=== PATIENT | female | born 1960 | race Two or more races ===

== ENCOUNTER 2017-06-04 04:08 | Observation (INO) | payer SELFPAY ==
[2017-06-04] MEDS ORDERED: NS 1,000 ML IV ONE (04:16)
[2017-06-04] MEDS ORDERED: ASPIRIN 81 MG CHEWABLE TAB PO ONE (04:16)
[2017-06-04] MEDS ORDERED: NITROGLYCERIN 0.4 MG BTL SL PRN (04:16)
--- NOTE | 2017-06-04 04:20 | EDPHY ---
H & P HPI/ROS: HPI CHIEF COMPLAINT: Chest pain HISTORY OF PRESENT ILLNESS: This patient 56-year-old female, she tells me that in August of last year she had an AR. With 1 stent placed. She states this was done at [facility]. She is homeless. She is living at a local group home. For the past 3 days she has had intermittent chest discomfort in her chest she describes a sharp pain. Does not radiate. She does state that today got worse. Sharp in nature. Associated nausea 1 episode of vomiting. Associated shortness of breath. No pleuritic pain. She states she post be on aspirin. She decided call 911 today as she developed worsening pain in her chest. Past Medical History: Anxiety, thyroid disease, coronary artery disease with a stent. Past Surgical History: No recent surgery Social History: Homeless, denies illicit drugs alcohol tobacco. Family History: Noncontributory. ROS REVIEW OF SYSTEMS: A comprehensive 10 point review of systems is otherwise negative aside from elements mentioned in the history of present illness. Exam Constitutional appears well nontoxic, slightly anxious, triage nursing summary reviewed, vital signs reviewed, awake/alert. Eyes normal conjunctivae and sclera, EOMI, PERRLA. HENT normal inspection, atraumatic, moist mucus membranes, no epistaxis, neck supple/ no meningismus, no raccoon eyes. Respiratory clear to auscultation bilaterally, normal breath sounds, no respiratory distress, no wheezing. Cardiovascular rate normal, regular rhythm, no murmur, no edema, distal pulses normal. Gastrointestinal soft, non-tender, no rebound, no guarding, normal bowel sounds, no distension, no pulsatile mass. Genitourinary no CVA tenderness. Musculoskeletal no midline vertebral tenderness, full range of motion, no calf swelling, no tenderness of extremities, no meningismus, good pulses, neurovascularly intact. Skin pink, warm, & dry, no rash, skin atraumatic. Neurologic awake, alert and oriented x 3, AAOx3, moves all 4 extremities equally, motor intact, sensory intact, CN II-XII intact, normal cerebellar, normal vision, normal speech. Psychiatric normal mood/affect. Heme/Lymph/Immune no lymphadenopathy. Differential diagnosis includes but is not limited to: ACS, atypical chest pain , pneumothorax, pneumonia, pulmonary embolism, aortic dissection, congestive heart failure, tumor, musculoskeletal pain, esophageal pain, GERD, peptic ulcer disease, pancreatitis Medical Decision Making: Plan for this patient IV establishment with IV fluid bolus, full-dose aspirin, nitroglycerin to see if this improves her chest discomfort, chest x-ray, EKG to rule out acute coronary syndrome, and possible admission for chest discomfort. Re-evaluation: Risk factors for chest pain include known coronary artery disease according to the patient. Cardiac stent. Age. EKG interpretation by me on record in [employer] system. Impression time of EKG 0441: This is sinus rhythm rate of 61. T-wave flattening in the lateral leads 1 aVL. Additionally V4 V5 V6. Otherwise I do not appreciate acute ischemia. No old EKG to compare to. ED x-ray chest one view: Negative for acute cardiopulmonary disease. Image interpreted myself. 0516: Spoke with the hospitalist service agrees to admit this patient. Reason for admission chest pain. According to the patient she has risk factors of known coronary artery disease with 1 stent. Her EKG is nonspecific. Troponin negative. D-dimer pending. She is chest pain-free at this time. She received full-dose aspirin prior to arrival and nitroglycerin. Vital signs stable. Source: Patient, EMS Constitutional: Initial Vital Signs Temperature (C) 36.6 C 06/04/17 04:22 Heart Rate 73 06/04/17 04:22 Respiratory Rate 20 06/04/17 04:22 Blood Pressure 107/80 06/04/17 04:22 O2 Sat (%) 96 06/04/17 04:22 O2 Delivery Mode Room Air Allergies/Adverse Reactions: No Known Allergies Allergy (Unverified 06/04/17 04:21) Home Medications: Medication Instructions Recorded Aspirin [Aspirin 81mg (*)] 81 mg PO DAILY 06/04/17 Herbals/Supplements -Info Only 1 ea PO DAILY 06/04/17 buPROPion XL [Wellbutrin Xl] 300 mg PO DAILY 06/04/17 hydrOXYzine HCL [hydrOXYzine HCL 50 - 100 mg PO HS PRN 06/04/17 (RX)] Medical Decision Making - Data Points Laboratory Results: Laboratory Results 06/04/17 04:15 06/04/17 04:15 Medications Given: Acetaminophen (Tylenol) 650 mg PO Q4HRS PRN PRN Reason: Pain, Mild/Fever, Can Take PO Stop: 12/01/17 05:35 Last Admin: 06/04/17 19:52 Dose: 650 mg Bupropion HCl (Wellbutrin Xl) 300 mg PO DAILY [facility] Stop: 12/01/17 08:59 Last Admin: 06/04/17 09:48 Dose: 300 mg Clopidogrel Bisulfate (Plavix) 75 mg PO DAILY [facility] Stop: 12/01/17 17:59 Last Admin: 06/04/17 19:52 Dose: 75 mg Enoxaparin Sodium (Lovenox) 40 mg SC DAILY [facility] Stop: 12/01/17 08:59 Last Admin: 06/04/17 12:45 Dose: Not Given Ondansetron HCl (Zofran) 4 mg IVP Q4HRS PRN PRN Reason: Nausea/Vomiting, Can't Take PO Stop: 12/01/17 05:35 Last Admin: 06/04/17 17:45 Dose: 4 mg Pantoprazole Sodium (Protonix) 40 mg PO DAILY [facility] Stop: 12/01/17 17:59 Last Admin: 06/04/17 19:52 Dose: 40 mg Discontinued Medications Aspirin (Aspirin) 324 mg PO EDNOW ONE Stop: 06/04/17 04:17 Last Admin: 06/04/17 04:40 Dose: Not Given Sodium Chloride (Ns) 1,000 mls @ 0 mls/hr IV EDNOW ONE; Wide Open PRN Reason: Protocol Stop: 06/04/17 04:17 Last Admin: 06/04/17 04:36 Dose: 1,000 mls Departure - Departure Disposition: [place] Inpatient Acute Clinical Impression: Chest pain Qualifiers: Chest pain type: unspecified Qualified Code(s): R07.9 - Chest pain, unspecified Condition: Fair
--- NOTE | 2017-06-04 04:20 | EDPHY ---
H & P HPI/ROS: HPI CHIEF COMPLAINT: Chest pain HISTORY OF PRESENT ILLNESS: This patient 56-year-old female, she tells me that in August of last year she had an KS. With 1 stent placed. She states this was done at [facility]. She is homeless. She is living at a local retirement. For the past 3 days she has had intermittent chest discomfort in her chest she describes a sharp pain. Does not radiate. She does state that today got worse. Sharp in nature. Associated nausea 1 episode of vomiting. Associated shortness of breath. No pleuritic pain. She states she post be on aspirin. She decided call 911 today as she developed worsening pain in her chest. Past Medical History: Anxiety, thyroid disease, coronary artery disease with a stent. Past Surgical History: No recent surgery Social History: Homeless, denies illicit drugs alcohol tobacco. Family History: Noncontributory. ROS REVIEW OF SYSTEMS: A comprehensive 10 point review of systems is otherwise negative aside from elements mentioned in the history of present illness. Exam Constitutional appears well nontoxic, slightly anxious, triage nursing summary reviewed, vital signs reviewed, awake/alert. Eyes normal conjunctivae and sclera, EOMI, PERRLA. HENT normal inspection, atraumatic, moist mucus membranes, no epistaxis, neck supple/ no meningismus, no raccoon eyes. Respiratory clear to auscultation bilaterally, normal breath sounds, no respiratory distress, no wheezing. Cardiovascular rate normal, regular rhythm, no murmur, no edema, distal pulses normal. Gastrointestinal soft, non-tender, no rebound, no guarding, normal bowel sounds, no distension, no pulsatile mass. Genitourinary no CVA tenderness. Musculoskeletal no midline vertebral tenderness, full range of motion, no calf swelling, no tenderness of extremities, no meningismus, good pulses, neurovascularly intact. Skin pink, warm, & dry, no rash, skin atraumatic. Neurologic awake, alert and oriented x 3, AAOx3, moves all 4 extremities equally, motor intact, sensory intact, CN II-XII intact, normal cerebellar, normal vision, normal speech. Psychiatric normal mood/affect. Heme/Lymph/Immune no lymphadenopathy. Differential diagnosis includes but is not limited to: ACS, atypical chest pain , pneumothorax, pneumonia, pulmonary embolism, aortic dissection, congestive heart failure, tumor, musculoskeletal pain, esophageal pain, GERD, peptic ulcer disease, pancreatitis Medical Decision Making: Plan for this patient IV establishment with IV fluid bolus, full-dose aspirin, nitroglycerin to see if this improves her chest discomfort, chest x-ray, EKG to rule out acute coronary syndrome, and possible admission for chest discomfort. Re-evaluation: Risk factors for chest pain include known coronary artery disease according to the patient. Cardiac stent. Age. EKG interpretation by me on record in [facility] system. Impression time of EKG 0441: This is sinus rhythm rate of 61. T-wave flattening in the lateral leads 1 aVL. Additionally V4 V5 V6. Otherwise I do not appreciate acute ischemia. No old EKG to compare to. ED x-ray chest one view: Negative for acute cardiopulmonary disease. Image interpreted myself. 0516: Spoke with the hospitalist service agrees to admit this patient. Reason for admission chest pain. According to the patient she has risk factors of known coronary artery disease with 1 stent. Her EKG is nonspecific. Troponin negative. D-dimer pending. She is chest pain-free at this time. She received full-dose aspirin prior to arrival and nitroglycerin. Vital signs stable. Source: Patient, EMS Constitutional: Initial Vital Signs Temperature (C) 36.6 C 06/04/17 04:22 Heart Rate 73 06/04/17 04:22 Respiratory Rate 20 06/04/17 04:22 Blood Pressure 107/80 06/04/17 04:22 O2 Sat (%) 96 06/04/17 04:22 O2 Delivery Mode Room Air Allergies/Adverse Reactions: No Known Allergies Allergy (Unverified 06/04/17 04:21) Home Medications: Medication Instructions Recorded Aspirin [Aspirin 81mg (*)] 81 mg PO DAILY 06/04/17 Herbals/Supplements -Info Only 1 ea PO DAILY 06/04/17 buPROPion XL [Wellbutrin Xl] 300 mg PO DAILY 06/04/17 hydrOXYzine HCL [hydrOXYzine HCL 50 - 100 mg PO HS PRN 06/04/17 (RX)] Medical Decision Making - Data Points Laboratory Results: Laboratory Results 06/04/17 04:15 06/04/17 04:15 Medications Given: Acetaminophen (Tylenol) 650 mg PO Q4HRS PRN PRN Reason: Pain, Mild/Fever, Can Take PO Stop: 12/01/17 05:35 Last Admin: 06/04/17 19:52 Dose: 650 mg Bupropion HCl (Wellbutrin Xl) 300 mg PO DAILY [facility] Stop: 12/01/17 08:59 Last Admin: 06/04/17 09:48 Dose: 300 mg Clopidogrel Bisulfate (Plavix) 75 mg PO DAILY [facility] Stop: 12/01/17 17:59 Last Admin: 06/04/17 19:52 Dose: 75 mg Enoxaparin Sodium (Lovenox) 40 mg SC DAILY [facility] Stop: 12/01/17 08:59 Last Admin: 06/04/17 12:45 Dose: Not Given Ondansetron HCl (Zofran) 4 mg IVP Q4HRS PRN PRN Reason: Nausea/Vomiting, Can't Take PO Stop: 12/01/17 05:35 Last Admin: 06/04/17 17:45 Dose: 4 mg Pantoprazole Sodium (Protonix) 40 mg PO DAILY [facility] Stop: 12/01/17 17:59 Last Admin: 06/04/17 19:52 Dose: 40 mg Discontinued Medications Aspirin (Aspirin) 324 mg PO EDNOW ONE Stop: 06/04/17 04:17 Last Admin: 06/04/17 04:40 Dose: Not Given Sodium Chloride (Ns) 1,000 mls @ 0 mls/hr IV EDNOW ONE; Wide Open PRN Reason: Protocol Stop: 06/04/17 04:17 Last Admin: 06/04/17 04:36 Dose: 1,000 mls Departure - Departure Disposition: [place] Inpatient Acute Clinical Impression: Chest pain Qualifiers: Chest pain type: unspecified Qualified Code(s): R07.9 - Chest pain, unspecified Condition: Fair
--- NOTE | 2017-06-04 04:20 | EDPHY ---
H & P HPI/ROS: HPI CHIEF COMPLAINT: Chest pain HISTORY OF PRESENT ILLNESS: This patient 56-year-old female, she tells me that in August of last year she had an CT. With 1 stent placed. She states this was done at [facility]. She is homeless. She is living at a local snf. For the past 3 days she has had intermittent chest discomfort in her chest she describes a sharp pain. Does not radiate. She does state that today got worse. Sharp in nature. Associated nausea 1 episode of vomiting. Associated shortness of breath. No pleuritic pain. She states she post be on aspirin. She decided call 911 today as she developed worsening pain in her chest. Past Medical History: Anxiety, thyroid disease, coronary artery disease with a stent. Past Surgical History: No recent surgery Social History: Homeless, denies illicit drugs alcohol tobacco. Family History: Noncontributory. ROS REVIEW OF SYSTEMS: A comprehensive 10 point review of systems is otherwise negative aside from elements mentioned in the history of present illness. Exam Constitutional appears well nontoxic, slightly anxious, triage nursing summary reviewed, vital signs reviewed, awake/alert. Eyes normal conjunctivae and sclera, EOMI, PERRLA. HENT normal inspection, atraumatic, moist mucus membranes, no epistaxis, neck supple/ no meningismus, no raccoon eyes. Respiratory clear to auscultation bilaterally, normal breath sounds, no respiratory distress, no wheezing. Cardiovascular rate normal, regular rhythm, no murmur, no edema, distal pulses normal. Gastrointestinal soft, non-tender, no rebound, no guarding, normal bowel sounds, no distension, no pulsatile mass. Genitourinary no CVA tenderness. Musculoskeletal no midline vertebral tenderness, full range of motion, no calf swelling, no tenderness of extremities, no meningismus, good pulses, neurovascularly intact. Skin pink, warm, & dry, no rash, skin atraumatic. Neurologic awake, alert and oriented x 3, AAOx3, moves all 4 extremities equally, motor intact, sensory intact, CN II-XII intact, normal cerebellar, normal vision, normal speech. Psychiatric normal mood/affect. Heme/Lymph/Immune no lymphadenopathy. Differential diagnosis includes but is not limited to: ACS, atypical chest pain , pneumothorax, pneumonia, pulmonary embolism, aortic dissection, congestive heart failure, tumor, musculoskeletal pain, esophageal pain, GERD, peptic ulcer disease, pancreatitis Medical Decision Making: Plan for this patient IV establishment with IV fluid bolus, full-dose aspirin, nitroglycerin to see if this improves her chest discomfort, chest x-ray, EKG to rule out acute coronary syndrome, and possible admission for chest discomfort. Re-evaluation: Risk factors for chest pain include known coronary artery disease according to the patient. Cardiac stent. Age. EKG interpretation by me on record in [employer] system. Impression time of EKG 0441: This is sinus rhythm rate of 61. T-wave flattening in the lateral leads 1 aVL. Additionally V4 V5 V6. Otherwise I do not appreciate acute ischemia. No old EKG to compare to. ED x-ray chest one view: Negative for acute cardiopulmonary disease. Image interpreted myself. 0516: Spoke with the hospitalist service agrees to admit this patient. Reason for admission chest pain. According to the patient she has risk factors of known coronary artery disease with 1 stent. Her EKG is nonspecific. Troponin negative. D-dimer pending. She is chest pain-free at this time. She received full-dose aspirin prior to arrival and nitroglycerin. Vital signs stable. Source: Patient, EMS Constitutional: Initial Vital Signs Temperature (C) 36.6 C 06/04/17 04:22 Heart Rate 73 06/04/17 04:22 Respiratory Rate 20 06/04/17 04:22 Blood Pressure 107/80 06/04/17 04:22 O2 Sat (%) 96 06/04/17 04:22 O2 Delivery Mode Room Air Allergies/Adverse Reactions: No Known Allergies Allergy (Unverified 06/04/17 04:21) Home Medications: Medication Instructions Recorded Aspirin [Aspirin 81mg (*)] 81 mg PO DAILY 06/04/17 Herbals/Supplements -Info Only 1 ea PO DAILY 06/04/17 buPROPion XL [Wellbutrin Xl] 300 mg PO DAILY 06/04/17 hydrOXYzine HCL [hydrOXYzine HCL 50 - 100 mg PO HS PRN 06/04/17 (RX)] Medical Decision Making - Data Points Laboratory Results: Laboratory Results 06/04/17 04:15 06/04/17 04:15 Medications Given: Acetaminophen (Tylenol) 650 mg PO Q4HRS PRN PRN Reason: Pain, Mild/Fever, Can Take PO Stop: 12/01/17 05:35 Last Admin: 06/04/17 19:52 Dose: 650 mg Bupropion HCl (Wellbutrin Xl) 300 mg PO DAILY [facility] Stop: 12/01/17 08:59 Last Admin: 06/04/17 09:48 Dose: 300 mg Clopidogrel Bisulfate (Plavix) 75 mg PO DAILY [facility] Stop: 12/01/17 17:59 Last Admin: 06/04/17 19:52 Dose: 75 mg Enoxaparin Sodium (Lovenox) 40 mg SC DAILY [facility] Stop: 12/01/17 08:59 Last Admin: 06/04/17 12:45 Dose: Not Given Ondansetron HCl (Zofran) 4 mg IVP Q4HRS PRN PRN Reason: Nausea/Vomiting, Can't Take PO Stop: 12/01/17 05:35 Last Admin: 06/04/17 17:45 Dose: 4 mg Pantoprazole Sodium (Protonix) 40 mg PO DAILY [facility] Stop: 12/01/17 17:59 Last Admin: 06/04/17 19:52 Dose: 40 mg Discontinued Medications Aspirin (Aspirin) 324 mg PO EDNOW ONE Stop: 06/04/17 04:17 Last Admin: 06/04/17 04:40 Dose: Not Given Sodium Chloride (Ns) 1,000 mls @ 0 mls/hr IV EDNOW ONE; Wide Open PRN Reason: Protocol Stop: 06/04/17 04:17 Last Admin: 06/04/17 04:36 Dose: 1,000 mls Departure - Departure Disposition: [place] Inpatient Acute Clinical Impression: Chest pain Qualifiers: Chest pain type: unspecified Qualified Code(s): R07.9 - Chest pain, unspecified Condition: Fair
[2017-06-04 04:27] LABS: PLATELET COUNT 312 10^3/uL (150-400)
[2017-06-04 04:40] LABS: CREATINE KINASE 243 IU/L (0-156)
--- NOTE | 2017-06-04 04:48 | CPEKG ---
Heart Rate: 61 RR Interval: 984 P-R Interval: 172 QRSD Interval: 104 QT Interval: 436 QTC Interval: 440 P Gloster: 74 QRS [place]oster: 73 T Wave [place]oster: 76 EKG Severity - BORDERLINE ECG - EKG Impression: SINUS RHYTHM EKG Impression: BORDERLINE T ABNORMALITIES, ANT-LAT LEADS Electronically Signed By: Terry Dominguez 04-Jun-2017 07:06:34
[2017-06-04 05:05] LABS: INR 0.98 (0.83-1.16); PROTIME(PATIENT) 12.9 SEC (12.0-15.0)
[2017-06-04] MEDS ORDERED: LORazepam 0.5 MG TAB PO PRN (05:36)
[2017-06-04] MEDS ORDERED: HYDROCODONE/APAP 5/325 TAB PO PRN (05:36)
[2017-06-04] MEDS ORDERED: hydrOXYzine HCL 25 MG TAB PO PRN (08:45)
[2017-06-04] MEDS ORDERED: Herbals/Supplements -Info Only PO SCH (09:00)
[2017-06-04] MEDS: buPROPion XL 150 MG TAB PO SCH (09:48)
--- NOTE | 2017-06-04 10:39 | PDGENHP ---
History and Physical - Chief Complaint Acute Chest Pain - History of Present Illness PCP: [facility] HPI: 56 yo F p/w acute chest pain characterized as sharp, located in the sub- sternal area, onset 3 days ago, duration intermittent thereafter. It has been fairly constant since the evening prior to this presentation, and it was alleviated w/ ASA/SLNitro in the ED. She denies any recent trauma to the area, and reports that her ROM bilat shoulders has been intact. She reports some associated recent stress, with one episode of nausea/vomiting/shortness of breath, and she is unsure if this is all stress-mediated. She has been taking ASA 325 for the past year, and recently adjusted to ASA 81 at her PCP's guidance. She accidentally stopped taking Plavix several months ago, and was told to take for entire year. History Information - Allergies/Home Medication List Allergies/Adverse Reactions: No Known Allergies Allergy (Unverified 06/04/17 04:21) Home Medications: Aspirin [Aspirin 81mg (*)] 81 mg PO DAILY 06/04/17 [Last Taken 06/03/17] Herbals/Supplements -Info Only 1 ea PO DAILY 06/04/17 [Last Taken Unknown] buPROPion XL [Wellbutrin Xl] 300 mg PO DAILY 06/04/17 [Last Taken 06/03/17] hydrOXYzine HCL [hydrOXYzine HCL (RX)] 50 - 100 mg PO HS PRN 06/04/17 [Last Taken Unknown] I have personally reviewed and updated: family history, medical history, social history, surgical history - Past Medical History coronary artery disease (w/ stent placed 08/20 at [facility]) Additional medical history: Anxiety/Depression. Hypothyroidism - Surgical History Additional surgical history: Cardiac Stent - Family History Additional family history: no CAD/VTE - Social History Smoking Status: Never smoked Alcohol Use: None Drug Use: None Additional social history: Homeless, originally from [place], has been living in [facility] for past year Review of Systems Review of Systems: ROS: 10pt was reviewed & negative except for what was stated in HPI & below Cardiac: Reports: chest pain Respiratory: Reports: shortness of breath Gastrointestinal: Reports: vomitting, nausea Physical Exam Physical Exam: Temp Pulse Resp BP Pulse Ox 37.1 C 60 11 L 91/66 L 96 06/04/17 09:32 06/04/17 09:32 06/04/17 09:32 06/04/17 09:32 06/04/17 09:32 Constitutional: no apparent distress, appears nourished, not in pain Eyes: PERRL, anicteric sclera, EOMI Ears, Nose, Mouth, Throat: moist mucous membranes, hearing normal, ears appear normal, no oral mucosal ulcers Cardiovascular: regular rate and rhythym, no murmur, rub, or gallop, No edema Respiratory: no respiratory distress, no rales or rhonchi, clear to auscultation Gastrointestinal: normoactive bowel sounds, soft, non-tender abdomen, no palpable masses Skin: warm, normal color, no rashes or abrasions, no fluctuance, no induration, No mottled Musculoskeletal: other (full ROM L shoulder, no tenderness over clavicle or sternum) Neurologic: AAOx3, sensation intact bilaterally, No weakness Psychiatric: interacting appropriately, not anxious, not encephalopathic, thought process linear Lab Data & Imaging Review 06/04/17 04:15 06/04/17 04:15 WBC 8.16 10^3/uL (3.80-9.50) 06/04/17 04:15 RBC 4.82 10^6/uL (4.18-5.33) 06/04/17 04:15 Hgb 13.7 g/dL (12.6-16.3) 06/04/17 04:15 Hct 40.8 % (38.0-47.0) 06/04/17 04:15 MCV 84.6 fL (81.5-99.8) 06/04/17 04:15 MCH 28.4 pg (27.9-34.1) 06/04/17 04:15 MCHC 33.6 g/dL (32.4-36.7) 06/04/17 04:15 RDW 13.6 % (11.5-15.2) 06/04/17 04:15 Plt Count 312 10^3/uL (150-400) 06/04/17 04:15 MPV 10.0 fL (8.7-11.7) 06/04/17 04:15 Neut % (Auto) 69.2 % (39.3-74.2) 06/04/17 04:15 Lymph % (Auto) 24.0 % (15.0-45.0) 06/04/17 04:15 [place] % (Auto) 5.1 % (4.5-13.0) 06/04/17 04:15 Eos % (Auto) 0.9 % (0.6-7.6) 06/04/17 04:15 Baso % (Auto) 0.6 % (0.3-1.7) 06/04/17 04:15 Nucleat RBC Rel Count 0.0 % (0.0-0.2) 06/04/17 04:15 Absolute Neuts (auto) 5.64 10^3/uL (1.70-6.50) 06/04/17 04:15 Absolute Lymphs (auto) 1.96 10^3/uL (1.00-3.00) 06/04/17 04:15 Absolute Monos (auto) 0.42 10^3/uL (0.30-0.80) 06/04/17 04:15 Absolute Eos (auto) 0.07 10^3/uL (0.03-0.40) 06/04/17 04:15 Absolute Basos (auto) 0.05 10^3/uL (0.02-0.10) 06/04/17 04:15 Absolute Nucleated RBC 0.00 10^3/uL (0-0.01) 06/04/17 04:15 Immature Gran % 0.2 % (0.0-1.1) 06/04/17 04:15 Immature Gran # 0.02 10^3/uL (0.00-0.10) 06/04/17 04:15 PT 12.9 SEC (12.0-15.0) 06/04/17 04:35 INR 0.98 (0.83-1.16) 06/04/17 04:35 APTT 28.9 SEC (23.0-38.0) 06/04/17 04:35 D-Dimer < 0.27 ug/mLFEU (0.00-0.50) 06/04/17 04:35 Sodium 140 mEq/L (134-144) 06/04/17 04:15 Potassium 4.4 mEq/L (3.5-5.2) 06/04/17 04:15 Chloride 104 mEq/L (97-110) 06/04/17 04:15 Carbon Dioxide 20 mEq/l (22-31) L 06/04/17 04:15 Anion Gap 16 mEq/L (8-16) 06/04/17 04:15 BUN 14 mg/dL (7-23) 06/04/17 04:15 Creatinine 1.2 mg/dL (0.6-1.0) H 06/04/17 04:15 Estimated GFR 46 06/04/17 04:15 Glucose 109 mg/dL (70-100) H 06/04/17 04:15 Calcium 10.2 mg/dL (8.5-10.4) 06/04/17 04:15 Magnesium 2.1 mg/dL (1.6-2.3) 06/04/17 04:15 Total Bilirubin 0.7 mg/dL (0.1-1.4) 06/04/17 04:15 Conjugated Bilirubin 0.2 mg/dL (0.0-0.5) 06/04/17 04:15 Unconjugated Bilirubin 0.5 mg/dL (0.0-1.1) 06/04/17 04:15 AST 28 IU/L (14-46) 06/04/17 04:15 ALT 39 IU/L (9-52) 06/04/17 04:15 Alkaline Phosphatase 84 IU/L (38-126) 06/04/17 04:15 Creatine Kinase 243 IU/L (0-156) H 06/04/17 04:15 CK-MB (CK-2) Fraction 5.52 ng/mL (0.00-3.19) H 06/04/17 04:15 CK-MB (CK-2) % 2.3 % (0.0-4.0) 06/04/17 04:15 Creatine Kinase Interp NEGATIVE (NEGATIVE) 06/04/17 04:15 Troponin I < 0.012 ng/mL (0.000-0.034) 06/04/17 09:00 NT-Pro-B Natriuret Pep 43 pg/mL (0-125) 06/04/17 04:15 Total Protein 8.7 g/dL (6.3-8.2) H 06/04/17 04:15 Albumin 5.4 g/dL (3.5-5.0) H 06/04/17 04:15 Lipase 106 IU/L (23-300) 06/04/17 04:15 Visualized and Interpreted Chest x-ray results: Yes Chest X-Ray results: no infiltrate, other (possible L clavicle fxr) Visualized and Interpreted EKG results: Yes EKG Interpretation: Positive for: other (NSR< flat T wave V2-V3) Assessment & Plan Assessment: 56 yo F p/w acute chest pain in setting of known CAD Plan: # Chest pain. Acute, new problem, further w/u indicated. Given hx of CAD and prior stent, not on ideal oeet-xbuc-typiydup therapy, she is at risk of instent thrombosis and ACS - recheck trop now - if negative, then will get EKG treadmill stress this AM, keep NPO in case cath needed - if stress positive, will order outside recs from [facility] and get cards consult for cath - dimer negative - if all above negative, risk of ACS very low, and will discharge w/ suspected stress-induced physical symptoms, recommend outpt PCP/therapy reassessments # CAD. Chronic, patient not on dual anti-platelet therapy, recommended that she restart plavix and continue ASA - patient reports she has access to prescriptions through [employer] . 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 NPO, reg if stress neg PPx. Low risk, SCDs Code. Full Dispo. ADD 06/04 pending results of stress test. D/w [facility]el [facility], [facility], she has assigned patient to me for evaluation.
--- NOTE | 2017-06-04 10:39 | PDGENHP ---
History and Physical - Chief Complaint Acute Chest Pain - History of Present Illness PCP: [facility] HPI: 56 yo F p/w acute chest pain characterized as sharp, located in the sub- sternal area, onset 3 days ago, duration intermittent thereafter. It has been fairly constant since the evening prior to this presentation, and it was alleviated w/ ASA/SLNitro in the ED. She denies any recent trauma to the area, and reports that her ROM bilat shoulders has been intact. She reports some associated recent stress, with one episode of nausea/vomiting/shortness of breath, and she is unsure if this is all stress-mediated. She has been taking ASA 325 for the past year, and recently adjusted to ASA 81 at her PCP's guidance. She accidentally stopped taking Plavix several months ago, and was told to take for entire year. History Information - Allergies/Home Medication List Allergies/Adverse Reactions: No Known Allergies Allergy (Unverified 06/04/17 04:21) Home Medications: Aspirin [Aspirin 81mg (*)] 81 mg PO DAILY 06/04/17 [Last Taken 06/03/17] Herbals/Supplements -Info Only 1 ea PO DAILY 06/04/17 [Last Taken Unknown] buPROPion XL [Wellbutrin Xl] 300 mg PO DAILY 06/04/17 [Last Taken 06/03/17] hydrOXYzine HCL [hydrOXYzine HCL (RX)] 50 - 100 mg PO HS PRN 06/04/17 [Last Taken Unknown] I have personally reviewed and updated: family history, medical history, social history, surgical history - Past Medical History coronary artery disease (w/ stent placed 08/20 at [facility]) Additional medical history: Anxiety/Depression. Hypothyroidism - Surgical History Additional surgical history: Cardiac Stent - Family History Additional family history: no CAD/VTE - Social History Smoking Status: Never smoked Alcohol Use: None Drug Use: None Additional social history: Homeless, originally from [place], has been living in [facility] for past year Review of Systems Review of Systems: ROS: 10pt was reviewed & negative except for what was stated in HPI & below Cardiac: Reports: chest pain Respiratory: Reports: shortness of breath Gastrointestinal: Reports: vomitting, nausea Physical Exam Physical Exam: Temp Pulse Resp BP Pulse Ox 37.1 C 60 11 L 91/66 L 96 06/04/17 09:32 06/04/17 09:32 06/04/17 09:32 06/04/17 09:32 06/04/17 09:32 Constitutional: no apparent distress, appears nourished, not in pain Eyes: PERRL, anicteric sclera, EOMI Ears, Nose, Mouth, Throat: moist mucous membranes, hearing normal, ears appear normal, no oral mucosal ulcers Cardiovascular: regular rate and rhythym, no murmur, rub, or gallop, No edema Respiratory: no respiratory distress, no rales or rhonchi, clear to auscultation Gastrointestinal: normoactive bowel sounds, soft, non-tender abdomen, no palpable masses Skin: warm, normal color, no rashes or abrasions, no fluctuance, no induration, No mottled Musculoskeletal: other (full ROM L shoulder, no tenderness over clavicle or sternum) Neurologic: AAOx3, sensation intact bilaterally, No weakness Psychiatric: interacting appropriately, not anxious, not encephalopathic, thought process linear Lab Data & Imaging Review 06/04/17 04:15 06/04/17 04:15 WBC 8.16 10^3/uL (3.80-9.50) 06/04/17 04:15 RBC 4.82 10^6/uL (4.18-5.33) 06/04/17 04:15 Hgb 13.7 g/dL (12.6-16.3) 06/04/17 04:15 Hct 40.8 % (38.0-47.0) 06/04/17 04:15 MCV 84.6 fL (81.5-99.8) 06/04/17 04:15 MCH 28.4 pg (27.9-34.1) 06/04/17 04:15 MCHC 33.6 g/dL (32.4-36.7) 06/04/17 04:15 RDW 13.6 % (11.5-15.2) 06/04/17 04:15 Plt Count 312 10^3/uL (150-400) 06/04/17 04:15 MPV 10.0 fL (8.7-11.7) 06/04/17 04:15 Neut % (Auto) 69.2 % (39.3-74.2) 06/04/17 04:15 Lymph % (Auto) 24.0 % (15.0-45.0) 06/04/17 04:15 [place] % (Auto) 5.1 % (4.5-13.0) 06/04/17 04:15 Eos % (Auto) 0.9 % (0.6-7.6) 06/04/17 04:15 Baso % (Auto) 0.6 % (0.3-1.7) 06/04/17 04:15 Nucleat RBC Rel Count 0.0 % (0.0-0.2) 06/04/17 04:15 Absolute Neuts (auto) 5.64 10^3/uL (1.70-6.50) 06/04/17 04:15 Absolute Lymphs (auto) 1.96 10^3/uL (1.00-3.00) 06/04/17 04:15 Absolute Monos (auto) 0.42 10^3/uL (0.30-0.80) 06/04/17 04:15 Absolute Eos (auto) 0.07 10^3/uL (0.03-0.40) 06/04/17 04:15 Absolute Basos (auto) 0.05 10^3/uL (0.02-0.10) 06/04/17 04:15 Absolute Nucleated RBC 0.00 10^3/uL (0-0.01) 06/04/17 04:15 Immature Gran % 0.2 % (0.0-1.1) 06/04/17 04:15 Immature Gran # 0.02 10^3/uL (0.00-0.10) 06/04/17 04:15 PT 12.9 SEC (12.0-15.0) 06/04/17 04:35 INR 0.98 (0.83-1.16) 06/04/17 04:35 APTT 28.9 SEC (23.0-38.0) 06/04/17 04:35 D-Dimer < 0.27 ug/mLFEU (0.00-0.50) 06/04/17 04:35 Sodium 140 mEq/L (134-144) 06/04/17 04:15 Potassium 4.4 mEq/L (3.5-5.2) 06/04/17 04:15 Chloride 104 mEq/L (97-110) 06/04/17 04:15 Carbon Dioxide 20 mEq/l (22-31) L 06/04/17 04:15 Anion Gap 16 mEq/L (8-16) 06/04/17 04:15 BUN 14 mg/dL (7-23) 06/04/17 04:15 Creatinine 1.2 mg/dL (0.6-1.0) H 06/04/17 04:15 Estimated GFR 46 06/04/17 04:15 Glucose 109 mg/dL (70-100) H 06/04/17 04:15 Calcium 10.2 mg/dL (8.5-10.4) 06/04/17 04:15 Magnesium 2.1 mg/dL (1.6-2.3) 06/04/17 04:15 Total Bilirubin 0.7 mg/dL (0.1-1.4) 06/04/17 04:15 Conjugated Bilirubin 0.2 mg/dL (0.0-0.5) 06/04/17 04:15 Unconjugated Bilirubin 0.5 mg/dL (0.0-1.1) 06/04/17 04:15 AST 28 IU/L (14-46) 06/04/17 04:15 ALT 39 IU/L (9-52) 06/04/17 04:15 Alkaline Phosphatase 84 IU/L (38-126) 06/04/17 04:15 Creatine Kinase 243 IU/L (0-156) H 06/04/17 04:15 CK-MB (CK-2) Fraction 5.52 ng/mL (0.00-3.19) H 06/04/17 04:15 CK-MB (CK-2) % 2.3 % (0.0-4.0) 06/04/17 04:15 Creatine Kinase Interp NEGATIVE (NEGATIVE) 06/04/17 04:15 Troponin I < 0.012 ng/mL (0.000-0.034) 06/04/17 09:00 NT-Pro-B Natriuret Pep 43 pg/mL (0-125) 06/04/17 04:15 Total Protein 8.7 g/dL (6.3-8.2) H 06/04/17 04:15 Albumin 5.4 g/dL (3.5-5.0) H 06/04/17 04:15 Lipase 106 IU/L (23-300) 06/04/17 04:15 Visualized and Interpreted Chest x-ray results: Yes Chest X-Ray results: no infiltrate, other (possible L clavicle fxr) Visualized and Interpreted EKG results: Yes EKG Interpretation: Positive for: other (NSR< flat T wave V2-V3) Assessment & Plan Assessment: 56 yo F p/w acute chest pain in setting of known CAD Plan: # Chest pain. Acute, new problem, further w/u indicated. Given hx of CAD and prior stent, not on ideal cszh-gmml-kngisdmd therapy, she is at risk of instent thrombosis and ACS - recheck trop now - if negative, then will get EKG treadmill stress this AM, keep NPO in case cath needed - if stress positive, will order outside recs from [facility] and get cards consult for cath - dimer negative - if all above negative, risk of ACS very low, and will discharge w/ suspected stress-induced physical symptoms, recommend outpt PCP/therapy reassessments # CAD. Chronic, patient not on dual anti-platelet therapy, recommended that she restart plavix and continue ASA - patient reports she has access to prescriptions through [employer] . 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 NPO, reg if stress neg PPx. Low risk, SCDs Code. Full Dispo. ADD 06/04 pending results of stress test. [facility], she has assigned patient to me for evaluation.
[2017-06-04] MEDS: ENOXAPARIN 40 MG/0.4 ML SYR SC SCH (12:45)
--- NOTE | 2017-06-04 13:14 | CPR ---
[f rep st] NONINVASIVE CARDIAC PROCEDURE REPORT STUDY PERFORMED: Exercise treadmill testing. INDICATION FOR STRESS TESTING: Chest pressure, history of coronary artery disease with previous sten ting. PRE-: After obtaining informed consent, patient was placed on electrocardiogram. Initial EKG shows sinus rhythm, normal axis, with flattened to inverse T-waves in inferior lateral leads. The patient reporting 4/10 chest pressure, which has been consistent for the last 4 days, not associated with exe rtion. Initial blood pressure 100/70. Saturation 96% on room air. STRESS: The patient was placed on exercise treadmill, following standard Derek protocol, with the fo llowing findings: 1. Patient exercised for 6 minutes and 29 seconds. 2. 7.6 METS. 3. Patient obtained a heart rate of 142 beats per minute, which was 86% of her MPHR. 4. Patient was noted to have [address] depression in inferior lateral leads. 5. Patient did report mild increase in chest pressure up to a 5/10 with exertion, but not exercise l imiting. 6. SpO2 remained greater than 90% throughout testing. 7. Blood pressure response to stress: Resting 100/70, peak 124/60. 8. Patient had no arrhythmias noted in pre, stress, or recovery phases. 9. Testing was stopped due to maximum effort. 10. Juarez treadmill score of -3, placing patient at intermediate risk. RECOVERY: Patient recovered for 5 minutes reporting with continuation of mild chest pressure as in p re, but reporting improved after stopping. As the EKG returned to baseline, vital signs remained sta ble. Within 5 minutes, after vital signs remained stable, the patient was transferred back to the te lemetry unit. IMPRESSION: 56-year-old female with reported history of coronary artery disease with previous stenti ng done earlier this year with ongoing consistent chest pressure for the last 4 days. Being evaluate d for cardiac ischemia. Electrocardiogram stress testing was equivocal for possible ischemia with Du ke treadmill score of -3, placing her at intermediate risk, though the specificity of this testing ma y be skewed due to her underlying resting EKG. Results of testing went over with Dr. Crandall and Dr. Bain and called to Dr. Young with recommendat ions of either imaging study or undergo coronary CT angiogram. /[id number]/MODL
[2017-06-04] MEDS ORDERED: IOPAMIDOL (ISOVUE 370) 100 ML BTL IV ONE (14:12)
--- NOTE | 2017-06-04 14:36 | ASMTCMCOM ---
CM Note CM Note Notes: 06/04/2017 Case Management Note Met w/pt and brother Gage [phone] Both are homeless and have completed the new coordinated entry system. Both have reserved beds at the [facility]. Provided information for [facility] as well as [facility] for follow up care. Pt is well resourced with community services through the [facility]. Left a vm for Serafin,Refrigerator Car Icer at the [facility], of pt admission to [facility]. Case Management d/c poc: to [facility] when medically stable with follow up care through [facility] or [facility] as directed. Case Management available if needs change. Date Signed: 06/04/2017 02:35 PM Electronically Signed By:Syeda Wyatt RN
--- NOTE | 2017-06-04 14:36 | ASMTCMCOM ---
CM Note CM Note Notes: 06/04/2017 Case Management Note Met w/pt and brother Gage [phone] Both are homeless and have completed the new coordinated entry system. Both have reserved beds at the [facility]. Provided information for [facility] as well as [facility] for follow up care. Pt is well resourced with community services through the correction. Left a vm for Serafin,Fleet Maintenance Foreman at the correction, of pt admission to [facility]. Case Management d/c poc: to correction when medically stable with follow up care through [facility] or [facility] as directed. Case Management available if needs change. Date Signed: 06/04/2017 02:35 PM Electronically Signed By:Syeda Wyatt RN
--- NOTE | 2017-06-04 14:36 | ASMTCMCOM ---
CM Note CM Note Notes: 06/04/2017 Case Management Note Met w/pt and brother Gage [phone] Both are homeless and have completed the new coordinated entry system. Both have reserved beds at the [facility]. Provided information for [facility] as well as [facility] for follow up care. Pt is well resourced with community services through the senior living. Left a vm for Serafin,Electroencephalograph Technician at the senior living, of pt admission to [facility]. Case Management d/c poc: to senior living when medically stable with follow up care through [facility] or [facility] as directed. Case Management available if needs change. Date Signed: 06/04/2017 02:35 PM Electronically Signed By:Syeda Wyatt RN
[2017-06-04] MEDS: ONDANSETRON 4 MG/2 ML VIAL IVP PRN (17:45)
[2017-06-04] MEDS ORDERED: PROMETHAZINE HCL 25 MG TAB PO PRN (17:58)
[2017-06-04] MEDS ORDERED: MAG HYDROX/AL HYDROX/SIMETH 30 ML UDCUP PO PRN (17:59)
[2017-06-04] MEDS ORDERED: CALCIUM CARBONATE 500 MG CHEWABLE TAB PO PRN (17:59)
[2017-06-04] MEDS: ACETAMINOPHEN 325 MG TAB PO PRN (19:52)
[2017-06-04] MEDS: CLOPIDOGREL BISULFATE 75 MG TAB PO SCH (19:52)
[2017-06-04] MEDS: PANTOPRAZOLE SODIUM 40 MG TAB PO SCH (19:52)
[2017-06-04 23:20] VITALS: TEMP 97.9
[2017-06-05] MEDS ORDERED: CLOPIDOGREL BISULFATE 75 MG TAB PO SCH
[2017-06-05] MEDS ORDERED: PANTOPRAZOLE SODIUM 40 MG TAB PO SCH
[2017-06-05] MEDS ORDERED: ATORVASTATIN CALCIUM 20 MG TAB PO SCH
[2017-06-05] MEDS ORDERED: ASPIRIN EC 81 MG TAB PO SCH
[2017-06-05 05:35] LABS: PLATELET COUNT 258 10^3/uL (150-400)
[2017-06-05 08:07] VITALS: BP 83/57; PULSE 57; RESP 17; O2SAT 94
[2017-06-05] MEDS: PANTOPRAZOLE SODIUM 40 MG TAB PO SCH (08:44)
[2017-06-05] MEDS: CLOPIDOGREL BISULFATE 75 MG TAB PO SCH (08:45)
[2017-06-05] MEDS: buPROPion XL 150 MG TAB PO SCH (08:45)
[2017-06-05] MEDS: ENOXAPARIN 40 MG/0.4 ML SYR SC SCH (08:47)
[2017-06-05] MEDS ORDERED: ASPIRIN 81 MG CHEWABLE TAB PO SCH (09:00)
[2017-06-05] MEDS: ACETAMINOPHEN 325 MG TAB PO PRN (09:03)
[2017-06-05] MEDS: ONDANSETRON 4 MG/2 ML VIAL IVP PRN (09:04)
--- NOTE | 2017-06-05 10:58 | ASMTCMCOM ---
CM Note CM Note Notes: 06/05/2017 Case Management Note Arranged appointment at [facility] ([address] [facility]) on FridayJun 10 at 9:[address] Benjie Hoover. Provided [address] Young's request thru [facility] program. Pt to d/c to [facility] with follow up at [facility]'s [facility]. Date Signed: 06/05/2017 10:57 AM Electronically Signed By:Syeda Wyatt RN
--- NOTE | 2017-06-05 10:58 | ASMTCMCOM ---
CM Note CM Note Notes: 06/05/2017 Case Management Note Arranged appointment at [facility] ([address] [facility]) on FridayJun 10 at 9:[address] Benjie Hoover. Provided [address] Young's request thru [facility] program. Pt to d/c to homeless [facility] with follow up at [facility]. Date Signed: 06/05/2017 10:57 AM Electronically Signed By:Syeda Wyatt RN
--- NOTE | 2017-06-05 10:58 | ASMTCMCOM ---
CM Note CM Note Notes: 06/05/2017 Case Management Note Arranged appointment at [facility]'s [facility] ([address] [facility]) on FridayJun 10 at 9:[address] Benjie Hoover. Provided [address] Young's request thru [facility] program. Pt to d/c to homeless [facility] with follow up at [facility]. Date Signed: 06/05/2017 10:57 AM Electronically Signed By:Syeda Wyatt RN
--- NOTE | 2017-06-05 14:49 | ASDISCHSUM ---
Discharge Information Plan Status:Homeless/[facility] Medically Cleared to Leave:06/05/2017 Discharge Date:06/05/2017 01:30 PM CM D/C Disposition:Home, Routine, Self-Care ADT D/C Disposition:Home, Routine, Self-Care Projected Discharge Date:06/05/2017 01:30 PM Transportation at D/C:Bus Ticket Discharge Delay Reason: Follow-Up Date:06/05/2017 01:30 PM Discharge Slot: Final Diagnosis: Placement Information Patient Contact Information Contact Name:MAMADOUGustavo Relationship: Address: Work Phone: City: [facility] Phone: [facility]/Zip Code: Email: Financial Information Financial Class:Self-Pay Primary Plan Desc:SELF PAY Primary Plan Number: Secondary Plan Desc: Secondary Plan Number: Assessment Information [facility] CM Progress Note CM Note CM Note Notes: 06/04/2017 Case Management Note Met w/pt and brother Gage [phone] Both are homeless and have completed the new coordinated entry system. Both have reserved beds at the [facility]. Provided information for [facility] as well as [facility] for follow up care. Pt is well resourced with community services through the [facility]. Left a vm for Serafin,Senior Scheduler at the [facility]pc, of pt admission to [facility]. Case Management d/c poc: to [facility] when medically stable with follow up care through [facility] or [facility] as directed. Case Management available if needs change. Date Signed: 06/04/2017 02:35 PM Electronically Signed By:Syeda Wyatt RN [facility] CM Progress Note CM Note CM Note Notes: 06/05/2017 Case Management Note Arr[facility] appointment at [facility] ([address] [facility]) on FridayJun 10 at 9:[address] Benjie Hoover. Provided [address] Young's request thru [facility] program. Pt to d/c to homeless [facility] with follow up at [facility]. Date Signed: 06/05/2017 10:57 AM Electronically Signed By:Syeda Wyatt RN Intervention Information Intervention Type:Bus Pass Date of Service:06/05/2017 12:50 PM Patient Type:Observation Staff Member:ORIANA Wyatt Hillary Hours: Discipline: Severity: Comment: Intervention Type:Health Clinic Date of Service:06/05/2017 12:50 PM Patient Type:Observation Staff Member:ORIANA Wyatt Hillary Hours:0.5 Discipline: Severity: Comment:arranged appointment at [facility] Intervention Type:[facility] Date of Service:06/05/2017 12:50 PM Patient Type:Observation Staff Member:ORIANA Wyatt Hillary Hours: Discipline: Severity: Comment:
--- NOTE | 2017-06-05 14:49 | ASDISCHSUM ---
Discharge Information Plan Status:Homeless/Long Term Medically Cleared to Leave:06/05/2017 Discharge Date:06/05/2017 01:30 PM CM D/C Disposition:Home, Routine, Self-Care ADT D/C Disposition:Home, Routine, Self-Care Projected Discharge Date:06/05/2017 01:30 PM Transportation at D/C:Bus Ticket Discharge Delay Reason: Follow-Up Date:06/05/2017 01:30 PM Discharge Slot: Final Diagnosis: Placement Information Patient Contact Information Contact Name:MAMADOUGustavo Relationship: Address: Work Phone: City: [facility] Phone: [facility]/Zip Code: Email: Financial Information Financial Class:Self-Pay Primary Plan Desc:SELF PAY Primary Plan Number: Secondary Plan Desc: Secondary Plan Number: Assessment Information [facility] CM Progress Note CM Note CM Note Notes: 06/04/2017 Case Management Note Met w/pt and brother Gage [phone] Both are homeless and have completed the new coordinated entry system. Both have reserved beds at the [facility]. Provided information for [facility] as well as [facility] for follow up care. Pt is well resourced with community services through the [facility]. Left a vm for Serafin,Core Finisher at the [facility], of pt admission to [facility]. Case Management d/c poc: to [facility] when medically stable with follow up care through [facility] or [facility] as directed. Case Management available if needs change. Date Signed: 06/04/2017 02:35 PM Electronically Signed By:Syeda Wyatt RN [facility] CM Progress Note CM Note CM Note Notes: 06/05/2017 Case Management Note Arranged appointment at [facility] ([address] [facility]) on FridayJun 10 at 9:[address] Benjie Hoover. Provided [address] Young's request thru MAP program. Pt to d/c to homeless [facility] with follow up at [facility]. Date Signed: 06/05/2017 10:57 AM Electronically Signed By:Syeda Wyatt RN Intervention Information Intervention Type:Bus Pass Date of Service:06/05/2017 12:50 PM Patient Type:Observation Staff Member:ORIANA Wyatt Hillary Hours: Discipline: Severity: Comment: Intervention Type:Health Clinic Date of Service:06/05/2017 12:50 PM Patient Type:Observation Staff Member:ORIANA Wyatt Hillary Hours:0.5 Discipline: Severity: Comment:arranged appointment at [facility] Intervention Type:Long Term Date of Service:06/05/2017 12:50 PM Patient Type:Observation Staff Member:ORIANA Wyatt Hillary Hours: Discipline: Severity: Comment:
--- NOTE | 2017-06-05 14:49 | ASDISCHSUM ---
Discharge Information Plan Status:Homeless/Retirement Medically Cleared to Leave:06/05/2017 Discharge Date:06/05/2017 01:30 PM CM D/C Disposition:Home, Routine, Self-Care ADT D/C Disposition:Home, Routine, Self-Care Projected Discharge Date:06/05/2017 01:30 PM Transportation at D/C:Bus Ticket Discharge Delay Reason: Follow-Up Date:06/05/2017 01:30 PM Discharge Slot: Final Diagnosis: Placement Information Patient Contact Information Contact Name:MAMADOUGustavo Relationship: Address: Work Phone: City: [facility] Phone: [facility]/Zip Code: Email: Financial Information Financial Class:Self-Pay Primary Plan Desc:SELF PAY Primary Plan Number: Secondary Plan Desc: Secondary Plan Number: Assessment Information [facility] CM Progress Note CM Note CM Note Notes: 06/04/2017 Case Management Note Met w/pt and brother Gage [phone] Both are homeless and have completed the new coordinated entry system. Both have reserved beds at the [facility]. Provided information for [facility] as well as [facility] for follow up care. Pt is well resourced with community services through the [facility]. Left a vm for Serafin,Regulatory Affairs Specialist at the [facility], of pt admission to [facility]. Case Management d/c poc: to [facility] when medically stable with follow up care through [facility] or [facility] as directed. Case Management available if needs change. Date Signed: 06/04/2017 02:35 PM Electronically Signed By:Syeda Wyatt RN [facility] CM Progress Note CM Note CM Note Notes: 06/05/2017 Case Management Note Arranged appointment at [facility] ([address] [facility]) on FridayJun 10 at 9:[address] Benjie Hoover. Provided [address] Dr[address] Young's request thru MAP program. Pt to d/c to homeless [facility] with follow up at [facility]. Date Signed: 06/05/2017 10:57 AM Electronically Signed By:Syeda Wyatt RN Intervention Information Intervention Type:Bus Pass Date of Service:06/05/2017 12:50 PM Patient Type:Observation Staff Member:ORIANA Wyatt Hillary Hours: Discipline: Severity: Comment: Intervention Type:Health Clinic Date of Service:06/05/2017 12:50 PM Patient Type:Observation Staff Member:ORIANA Wyatt Hillary Hours:0.5 Discipline: Severity: Comment:arranged appointment at [facility] c Intervention Type:Retirement Date of Service:06/05/2017 12:50 PM Patient Type:Observation Staff Member:ORIANA Wyatt Hillary Hours: Discipline: Severity: Comment:
--- NOTE | 2017-06-05 16:56 | PDDCSUM ---
Discharge Summary Discharge Summary: DISCHARGE SUMMARY FOLLOW-UP ITEMS: Reassess renal function DATE OF ADMISSION: 06/04/2017 DATE OF DISCHARGE: 06/05/2017 DISCHARGE DIAGNOSES: 1. Acute chest pain 2. Suspected gastroesophageal reflux disease 3. Chronic coronary artery disease 4. Suspected chronic kidney disease stage 3 CONSULTATIONS: None PROCEDURES / IMAGING: EKG exercise stress test demonstrating anterolateral ST depression, CT coronary angiography demonstrating no obstructed flow with patent LAD stent, very mild InStent irregularities CHIEF COMPLAINT: Acute chest pain SUBJECTIVE: Chest pain resolved PHYSICAL EXAM ON DISCHARGE: Systolic blood pressure 100, heart rate 60, satting well on room air, alert awake oriented x3, no apparent distress, pain level 0/10 LABS ON DISCHARGE: Creatinine 1.3, troponin negative x3 HOSPITAL COURSE BY PROBLEM: The patient presented with acute chest pain most likely secondary to gastroesophageal reflux disease. The patient was ruled out for acute coronary syndrome with negative troponin x3, no overt ischemic changes on EKG. She was ruled out for obstructive coronary disease with a CT coronary angiogram demonstrating patent LAD stent with very minimal InStent irregularities. She was also ruled out for pulmonary embolism with a negative D-dimer. We did not recommend further cardiac risk stratification with cardiac catheterization, but rather recommended that she be adherent to her home medications including aspirin and Plavix until August of 2017, as well as statin. The patient was provided with a 1 week supply of these medications free of charge, as well as scripts for ongoing medications, to either be used through [facility] or [facility]. Patient has had adherence issues with these medications over the past few months, secondary to poor access to [place] from [place], and we recommended that she establish care at the [facility] in order to receive regular care. Of note, the patient's chest discomfort completely resolved after receiving a proton pump inhibitor, and I recommended continuing this medication for 1 month. We have provided her with 7 days of medication free of charge, as well as a script for ongoing medical management thereafter. The patient likely has a degree of chronic kidney impairment with a creatinine level between 1.2-1.3, without any reason to have acute kidney injury. I recommend that she have her renal function reassessed once she is seen in the primary care setting. DISCHARGE MEDICATIONS: Please see official discharge medication reconciliation sheet in chart , continue atorvastatin 20 mg daily, aspirin 81 mg daily, Plavix 75 mg daily, pantoprazole 40 mg daily, continue other home medications. DISCHARGE INSTRUCTIONS: Please establish primary care following this hospitalization.
== END 2017-06-05 13:30 | disposition home or self-care (01) ==
LOC: INTOOBSV 05:15 → F2W 05:57
PROVIDERS: ADMIT Family Medicine; ATTEND Internal Medicine
DX: R07.9 Chest pain, unspecified (principal); I25.10 Atherosclerotic heart disease of native coronary artery without angina pectoris; R94.39 Abnormal result of other cardiovascular function study; N28.9 Disorder of kidney and ureter, unspecified; E03.9 Hypothyroidism, unspecified; F32.9 Major depressive disorder, single episode, unspecified; F41.9 Anxiety disorder, unspecified; Z79.82 Long term (current) use of aspirin; Z91.14 Patient's other noncompliance with medication regimen; Z95.5 Presence of coronary angioplasty implant and graft; Z75.8 Other problems related to medical facilities and other health care; Z59.7 Insufficient social insurance and welfare support; Z59.0 Homelessness
CPT/HCPCS: G0378; J1650; J2405; Q9967

== ENCOUNTER 2017-07-05 11:16 | Emergency (ER) | payer SELFPAY ==
[2017-07-05] MEDS ORDERED: NS 1,000 ML IV ONE (11:22)
[2017-07-05] MEDS ORDERED: DIAZEPAM 10 MG/2 ML SYR IVP ONE (11:23)
--- NOTE | 2017-07-05 11:30 | EDPHY ---
H & P Time Seen by Provider: 07/05/17 11:17 HPI/ROS: HPI: This is a 56-year-old female with Chief Complaint: Left lateral neck pain Location: Left lateral neck Quality: Pain Duration: 3 days Signs and Symptoms: No bleeding, no radiation, no numbness, no weakness, no tingling, no headache, + decreased range of motion, no swelling, + pain Timing: Constant, worsening today Severity: Moderate Context: Patient has a history of coronary artery disease status post AMI cardiac stent x 1 and 2016 at [facility] presents with 3 day history of left lateral neck pain, constant, nonradiating in nature, that had an ominous onset with worsening today while at the library. Patient denies any trauma, paresthesias. Right-hand dominant. Patient is homeless. Reports that she took her Aspirin and Plavix today. Denies any shortness of, palpitations, chest pain, dizziness. EMS was called and cardiac strip shows no acute ischemic changes. Modifying Factors: None Comment: ROS: see HPI Constitutional: No fever, no chills, no weight loss Eyes: No blurred vision Respiratory: No shortness of breath, no cough Cardiovascular: No chest pain Gastrointestinal: No nausea, no vomiting no diarrhea Genitourinary: No dysuria Extremities: No myalgias Neurologic: No weakness, no numbness Skin: No rashes Hematologic: No bruising, no bleeding MEDICAL/SURGICAL/SOCIAL HISTORY: Medical history: AR, hypothyroidism depression anxiety Surgical history: Cardiac stent x1 in 2016 Social history: Homeless CONSTITUTIONAL: awake and alert, no obvious distress HEENT: Atraumatic and normocephalic. NECK: supple, left lateral muscle spasm/reproducible trapezius tenderness, no midline tenderness, flexion 45 degrees, extension 45 degrees, right and left lateral flexion 45 degrees. No meningismus. Cardiovascular: Normal S1/S2, regular rate, regular rhythm, without murmur rub or gallop. PULMONARY/CHEST: Symmetrical and nontender. no crepitus. Clear to auscultation bilaterally. Good air movement. No accessory muscle usage. ABDOMEN: Soft, nondistended, nontender, no ecchymosis. PELVIC: no pain with rocking; bilateral hips flexion 125 degrees, extension 30 degrees, with no pain internal rotation and no pain external rotation. BACK: No midline tenderness, no paraspinous spasm, deep tendon reflexes 2/2, no pain with straight leg raise EXTREMITIES: 2/2 pulses, left SHOULDER: Arc test abduction to 180, abduction to 45, horizontal flexion 130, horizontal extension to 45, deltoid strength 5 /5. No pain with Neer test/Paredes test (impingement). No Tenderness to palpation over AC joint. no deformities, no clubbing, no cyanosis or edema. NEUROLOGICAL: no focal neuro deficits. GCS 15. Light touch sensation intact. SKIN: Warm and dry, no erythema. no rash. Good capillary refill. Source: Patient, EMS Exam Limitations: No limitations - Medical/Surgical History Hx Asthma: No Hx Chronic Respiratory Disease: No Hx Diabetes: No Hx Cardiac Disease: No Hx Renal Disease: No Hx Cirrhosis: No Hx Alcoholism: No Hx HIV/AIDS: No Hx Splenectomy or Spleen Trauma: No Other PMH: AR, hypothyroidism depression anxiety - Social History Smoking Status: Never smoked Constitutional: Initial Vital Signs Temperature (C) 37 C 07/05/17 11:38 Heart Rate 68 07/05/17 11:38 Respiratory Rate 16 07/05/17 11:38 Blood Pressure 123/92 H 07/05/17 11:38 O2 Sat (%) 98 07/05/17 11:38 O2 Delivery Mode Room Air Allergies/Adverse Reactions: No Known Allergies Allergy (Unverified 06/04/17 04:21) Home Medications: Medication Instructions Recorded Herbals/Supplements -Info Only 1 ea PO DAILY 06/04/17 hydrOXYzine HCL [hydrOXYzine HCL 50 - 100 mg PO HS PRN 06/04/17 (RX)] Aspirin EC [Aspirin EC 81 mg (*)] 81 mg PO DAILY #30 tab 06/05/17 Atorvastatin Calcium 20 mg PO DAILY #30 tablet 06/05/17 Clopidogrel Bisulfate [Plavix (*)] 75 mg PO DAILY #30 tab 06/05/17 Pantoprazole Sodium [Protonix 40mg 40 mg PO DAILY #30 tab 06/05/17 (*)] buPROPion XL [Wellbutrin 150mg XL] 300 mg PO DAILY #60 tab 06/05/17 Cyclobenzaprine [Flexeril 10 MG 10 mg PO TID PRN #6 tab 07/05/17 (*)] Medical Decision Making - Diagnostics EKG Interpretation: 12 lead EKG: Indication: Shoulder pain Rhythm: Normal sinus rhythm, rate is 63 beats per minute [place]: Normal Intervals: Normal QRS: Normal ST segments: Normal INTERPRETATION: No acute ischemic changes The 12 lead EKG was interpreted by myself and with attending. Imaging Results: Imaging Impressions Cervical Spine X-Ray 07/05/17 11:23 Impression: Degenerative disk and degenerative joint disease cervical spine more pronounced at C5-C6 and C6-C7. Chest X-Ray 07/05/17 11:23 Impression: No evidence of acute cardiopulmonary abnormality. ED Course/Re-evaluation: EKG, chest x-ray cervical x-ray, labs, IV medications ordered No signs of neurovascular compromise/tenting of skin/compartment syndrome/ extremities and joints examined above and below area of concern and are neurovascularly intact/rotator cuff injury/left shoulder internal derangement. Given p.o. Flexeril and a topical Lidoderm patch with adequate relief of pain Patient ambulating towards the bathroom a slow, odd pattern. No ataxia noted. ECG shows no acute ischemic changes, arrhythmia Cervical x-ray my read shows degenerative changes most prominent at C5-C6 and C6 -C7. Chest x-ray my read shows no signs of opacity, effusion, pneumothorax. Mild degenerative changes in thoracic spine noted Reassessed patient who reports adequate relief of pain. Appears the patient has cervical degenerative disc disease with radiculopathy and associated muscle strain. Advised rice therapy. Symptoms have been occurring for 3 days; troponin # 1 is unremarkable and no indication to repeat a second one in 3-4 hours. This patient was seen under the supervision of my secondary supervising physician. I evaluated care for this patient independently. Patient's presentation, labs/imaging, treatment and plan of care were discussed with secondary supervising physician. Differential Diagnosis: Differential diagnosis includes but is not limited to atypical chest, cervical degenerative disc disease, left trapezius muscle strain, left shoulder internal derangement. - Data Points Laboratory Results: Laboratory Results 07/05/17 11:30 07/05/17 11:30 07/05/17 07/05/17 11:30 11:30 WBC 8.67 10^3/uL 10^3/uL (3.80-9.50) RBC 4.28 10^6/uL 10^6/uL (4.18-5.33) Hgb 12.6 g/dL g/dL (12.6-16.3) Hct 36.4 % L % (38.0-47.0) MCV 85.0 fL fL (81.5-99.8) MCH 29.4 pg pg (27.9-34.1) MCHC 34.6 g/dL g/dL (32.4-36.7) RDW 14.5 % % (11.5-15.2) Plt Count 321 10^3/uL 10^3/uL (150-400) MPV 9.7 fL fL (8.7-11.7) Neut % (Auto) 67.1 % % (39.3-74.2) Lymph % (Auto) 23.5 % % (15.0-45.0) [place] % (Auto) 7.5 % % (4.5-13.0) Eos % (Auto) 1.2 % % (0.6-7.6) Baso % (Auto) 0.5 % % (0.3-1.7) Nucleat RBC Rel Count 0.0 % % (0.0-0.2) Absolute Neuts (auto) 5.82 10^3/uL 10^3/uL (1.70-6.50) Absolute Lymphs (auto) 2.04 10^3/uL 10^3/uL (1.00-3.00) Absolute Monos (auto) 0.65 10^3/uL 10^3/uL (0.30-0.80) Absolute Eos (auto) 0.10 10^3/uL 10^3/uL (0.03-0.40) Absolute Basos (auto) 0.04 10^3/uL 10^3/uL (0.02-0.10) Absolute Nucleated RBC 0.00 10^3/uL 10^3/uL (0-0.01) Immature Gran % 0.2 % % (0.0-1.1) Immature Gran # 0.02 10^3/uL 10^3/uL (0.00-0.10) Sodium 139 mEq/L mEq/L (134-144) Potassium 4.2 mEq/L mEq/L (3.5-5.2) Chloride 103 mEq/L mEq/L (97-110) Carbon Dioxide 22 mEq/l mEq/l (22-31) Anion Gap 14 mEq/L mEq/L (8-16) BUN 18 mg/dL mg/dL (7-23) Creatinine 0.9 mg/dL mg/dL (0.6-1.0) Estimated GFR > 60 Glucose 78 mg/dL mg/dL (70-100) Calcium 10.0 mg/dL mg/dL (8.5-10.4) Troponin I < 0.012 ng/mL ng/mL (0.000-0.034) Medications Given: Discontinued Medications Cyclobenzaprine HCl (Flexeril) 10 mg PO EDNOW ONE Stop: 07/05/17 11:37 Last Admin: 07/05/17 11:54 Dose: 10 mg Diazepam (Valium Injection) 5 mg IVP EDNOW ONE Stop: 07/05/17 11:24 Last Admin: 07/05/17 11:50 Dose: Not Given Sodium Chloride (Ns) 1,000 mls @ 0 mls/hr IV EDNOW ONE; Wide Open PRN Reason: Protocol Stop: 07/05/17 11:23 Last Admin: 07/05/17 11:54 Dose: 1,000 mls Lidocaine (Lidoderm 5%) 1 ea TD EDNOW ONE Stop: 07/05/17 11:37 Last Admin: 07/05/17 11:54 Dose: 1 ea Departure - Departure Disposition: Home, Routine, Self-Care Clinical Impression: Disc disease, degenerative, cervical, Strain of cervical portion of left trapezius muscle Condition: Good Instructions: Degenerative Disc Disease (ED), Muscle Strain (ED), RICE Therapy (ED) Additional Instructions: X-rays today show your cervical spine has degenerative changes at C5-C6 and C6- C7. It appears that you have a muscle spasm/strain in the cervical paraspinous muscles as well as the left trapezius muscle. Please take Tylenol 650 mg every 4 hr and/or ibuprofen 600 mg every 8 hr with food as needed for pain. Use Flexeril every 8 hr as needed for muscle spasm. Apply heating pad several times per day, perform gentle stretching exercises, makes sure you have proper support underneath your neck while sleeping. If symptoms persist greater than 5-7 days; follow-up with [facility]. You may need MRI cervical outpatient to further evaluate. Referrals: [facility],. [Clinic] - As per Instructions Prescriptions: Cyclobenzaprine [Flexeril 10 MG (*)] 10 mg PO TID PRN #6 tab PRN Reason: Spasms
--- NOTE | 2017-07-05 11:31 | CPEKG ---
Heart Rate: 63 RR Interval: 952 P-R Interval: 168 QRSD Interval: 90 QT Interval: 408 QTC Interval: 418 P Lowes: 71 QRS [place]es: 62 T Wave Lowes: 56 EKG Severity - NORMAL ECG - EKG Impression: SINUS RHYTHM Electronically Signed By: Urban Ewing 05-Jul-2017 14:12:26
[2017-07-05] MEDS ORDERED: LIDOCAINE 5% 1 EA PATCH TD ONE (11:36)
[2017-07-05] MEDS ORDERED: CYCLOBENZAPRINE 10 MG TAB PO ONE (11:36)
[2017-07-05 11:37] LABS: % IMMATURE GRANULYOCYTES 0.2 % (0.0-1.1); ABSOLUTE IMMATURE GRANULOCYTES 0.02 10^3/uL (0.00-0.10); ADD DIFF? NO; ADD MORPH? NO; ADD SCAN? NO; ATYPICAL LYMPHOCYTE FLAG 0 (0-99); FRAGMENT RBC FLAG 0 (0-99); HEMATOCRIT 36.4 % (38.0-47.0); HEMOGLOBIN 12.6 g/dL (12.6-16.3); LEFT SHIFT FLG 0 (0-99); LIPEMIA HEMOLYSIS FLAG 90 (0-99); MEAN CELL HEMOGLOBIN 29.4 pg (27.9-34.1); MEAN CELL HEMOGLOBIN CONCENTR. 34.6 g/dL (32.4-36.7); MEAN PLATELET VOLUME 9.7 fL (8.7-11.7); PLATELET CLUMPS FLAG 0 (0-99); PLATELET COUNT 321 10^3/uL (150-400); RED BLOOD CELL COUNT 4.28 10^6/uL (4.18-5.33); RED CELL DISTRIBUTION WIDTH 14.5 % (11.5-15.2)
[2017-07-05 11:39] VITALS: BP 123/92; PULSE 68; RESP 16; TEMP 98.6; O2SAT 98
[2017-07-05 11:46] LABS: ANION GAP 14 mEq/L (8-16); CARBON DIOXIDE 22 mEq/l (22-31); CHLORIDE 103 mEq/L (97-110); CREATININE 0.9 mg/dL (0.6-1.0); GLOMERULAR FILTRATION RATE > 60; GLUCOSE 78 mg/dL (70-100); POTASSIUM 4.2 mEq/L (3.5-5.2); SODIUM 139 mEq/L (134-144)
[2017-07-05 11:57] LABS: TROPONIN I < 0.012 ng/mL (0.000-0.034)
[2017-07-05] MEDS ORDERED: PATCH REMOVAL 1 EA PATCH TD SCH (21:00)
== END 2017-07-05 12:51 | disposition home or self-care (01) ==
LOC: EDUNIT#
DX: S16.1XXA Strain of muscle, fascia and tendon at neck level, initial encounter (principal); M50.322 Other cervical disc degeneration at C5-C6 level; M50.323 Other cervical disc degeneration at C6-C7 level; I25.2 Old myocardial infarction; Z95.5 Presence of coronary angioplasty implant and graft; Z79.82 Long term (current) use of aspirin; X58.XXXA Exposure to other specified factors, initial encounter

== ENCOUNTER 2017-07-29 16:02 | Emergency (ER) | payer MEDICAID ==
[2017-07-29 16:13] VITALS: RESP 16
--- NOTE | 2017-07-29 16:14 | EDPHY ---
H & P Source: Patient Exam Limitations: No limitations - Medical/Surgical History Hx Asthma: No Hx Chronic Respiratory Disease: No Hx Diabetes: No Hx Cardiac Disease: No Hx Renal Disease: No Hx Cirrhosis: No Hx Alcoholism: No Hx HIV/AIDS: No Hx Splenectomy or Spleen Trauma: No Other PMH: [place], hypothyroidism depression anxiety - Social History Smoking Status: Never smoked Time Seen by Provider: 07/29/17 16:13 HPI/ROS: HPI: This is a 56-year-old female who presents with Chief Complaint: nausea, diarrhea, h/a x 1 day Location: GI Quality: Nausea, diarrhea Duration: 1-3 days Signs and Symptoms: no fever, + nausea, no vomiting, no hematemesis, no blood in stool, no abdominal bloating, + diarrhea, no back pain, no urinary symptoms, no vaginal bleeding/discharge, no indigestion, no chest pain, no shortness of breath Timing: Rapid onset, Intermittent episodes Severity: Moderate Context: Patient presents with sudden onset of nausea accompanied by 2-5 episodes of loose stools for the last 1-3 days. She reports that she is able to drink fluids but has had a poor appetite. Patient reports that she has family members with similar symptoms. She denies any fever/abdominal pain/ urinary symptoms/blood in stool/hematemesis. She has not had any foreign travel. No concerns of food poisoning. No history of abdominal surgeries. She denies abdominal pain but does report abdominal cramping prior to having a loose bowel movement. Modifying Factors: None Comment: ROS: see HPI Constitutional: No fever, no chills, no weight loss Eyes: No blurred vision Respiratory: No shortness of breath, no cough Cardiovascular: No chest pain, no palpitations Gastrointestinal: + nausea, no vomiting, + diarrhea, no hematemesis, no blood in stool Genitourinary: No dysuria, no blood in urine Extremities: No myalgias, no edema Neurologic: No weakness, no numbness Skin: No rashes, no petechiae Hematologic: No bruising, no bleeding MEDICAL/SURGICAL/SOCIAL HISTORY: Medical history: DC, hypothyroidism, depression, anxiety Surgical history: Cardiac stent x1 Social history: . CONSTITUTIONAL: Nontoxic appearing adult female, talkative and polite, awake and alert, no obvious distress HEENT: Atraumatic and normocephalic, PERRL, EOMI. Tympanic membranes clear. Oropharynx clear, no exudate and moist pink mucosa. Airway patent. No lymphadenopathy. No meningismus. Cardiovascular: Normal S1/S2, regular rate, regular rhythm, without murmur rub or gallop. PULMONARY/CHEST: Symmetrical and nontender. Clear to auscultation bilaterally. Good air movement. No accessory muscle usage. ABDOMEN: Soft, nondistended, nontender, no rebound, no guarding, no peritoneal signs, no masses or organomegaly. No CVAT. EXTREMITIES: 2/2 pulses, strength 5/5, no deformities, no clubbing, no cyanosis or edema. NEUROLOGICAL: no focal neuro deficits. GCS 15. SKIN: Warm and dry, no erythema. no rash. Good capillary refill. (Geraldine De La Fuente) Constitutional: Initial Vital Signs Temperature (C) 36.4 C 07/29/17 16:11 Heart Rate 84 07/29/17 16:11 Respiratory Rate 16 07/29/17 16:11 Blood Pressure 101/72 07/29/17 16:11 O2 Sat (%) 97 07/29/17 16:11 O2 Delivery Mode Room Air Allergies/Adverse Reactions: No Known Allergies Allergy (Unverified 06/04/17 04:21) Home Medications: Medication Instructions Recorded Herbals/Supplements -Info Only 1 ea PO DAILY 06/04/17 hydrOXYzine HCL [hydrOXYzine HCL 50 - 100 mg PO HS PRN 06/04/17 (RX)] Aspirin EC [Aspirin EC 81 mg (*)] 81 mg PO DAILY #30 tab 06/05/17 Atorvastatin Calcium 20 mg PO DAILY #30 tablet 06/05/17 Clopidogrel Bisulfate [Plavix (*)] 75 mg PO DAILY #30 tab 06/05/17 Pantoprazole Sodium [Protonix 40mg 40 mg PO DAILY #30 tab 06/05/17 (*)] buPROPion XL [Wellbutrin 150mg XL] 300 mg PO DAILY #60 tab 06/05/17 Cyclobenzaprine [Flexeril 10 MG 10 mg PO TID PRN #6 tab 07/05/17 (*)] Ondansetron Odt [Zofran Odt 4 mg 4 mg PO Q4 PRN #12 tab 07/29/17 (*)] Medical Decision Making ED Course/Re-evaluation: Labs, urinalysis, IV fluids, IV medications ordered Patient is afebrile no systemic signs. Abdominal exam is completely benign. Discussed obtaining CT imaging with patient she does not feel this is necessary nor do I. Patient given 2 L normal saline, IV promethazine with adequate relief 1645: Labs reviewed and show mild leukocytosis of 11 K. no signs of anemia/ transaminitis/electrolyte imbalance/acute kidney injury/sepsis 1735: Reassessed patient. No episodes of vomiting/diarrhea while in the emergency room. Passed p.o. trial. Reports that she is feeling considerably better. Repeat abdominal exam is soft and nontender. Patient prefers not to wait for urinalysis. Denies any urinary symptoms. Discharge home with supportive care. This patient was seen under the supervision of my secondary supervising physician. I evaluated care for this patient independently. Discussed this patient with Dr. Koo who did not see the patient. Patient's presentation, labs/imaging, treatment and plan of care were discussed with secondary supervising physician. (Geraldine De La Fuente) Differential Diagnosis: Abdominal pain including but not limited to appendicitis, cholecystitis, gastroenteritis, gastritis and urinary tract infection. (Geraldine De La Fuente) Other Provider: The patient was evaluated and managed by the Physician Pst Manager. I discussed the patient's presentation and course with the physician law office assistant and agree with the evaluation. My co-signature indicates that I have reviewed this chart and I agree with the findings and plan of care as documented. I am the secondary supervising physician. (Jessica Koo) - Data Points Laboratory Results: Laboratory Results 07/29/17 16:18 07/29/17 16:18 Medications Given: Discontinued Medications Sodium Chloride (Ns) 1,000 mls @ 0 mls/hr IV EDNOW ONE; Wide Open PRN Reason: Protocol Stop: 07/29/17 16:19 Last Admin: 07/29/17 16:23 Dose: 1,000 mls Sodium Chloride (Ns) 1,000 mls @ 0 mls/hr IV EDNOW ONE; Wide Open PRN Reason: Protocol Stop: 07/29/17 16:19 Last Admin: 07/29/17 16:24 Dose: 1,000 mls Promethazine HCl (Phenergan) 12.5 mg IVP EDNOW ONE Stop: 07/29/17 16:19 Last Admin: 07/29/17 16:24 Dose: 12.5 mg Departure - Departure Disposition: Home, Routine, Self-Care Clinical Impression: Gastroenteritis Condition: Good Instructions: Diet for Stomach Ulcers and Gastritis (ED), Gastroenteritis (ED) Additional Instructions: Please eat a bland diet for the next 4 ED hours and advance as tolerated. Please drink a minimum of 8-10 glasses of water or fluids electrolyte replacement drinks including Gatorade, Powerade, Pedialyte to prevent dehydration. You may use [id number] cough drops to ease throat discomfort. Use Zofran every 4 hr as needed for nausea/vomiting. If no improvement in 2-3 days; follow-up with your primary care provider. If at any time your symptoms worsen; please return to the emergency room for re- evaluation. Referrals: OTHER [facility],. [Cnc Operator Programmer] - As per Instructions Prescriptions: Ondansetron Odt [Zofran Odt 4 mg (*)] 4 mg PO Q4 PRN #12 tab PRN Reason: Nausea/Vomiting, Use 1st
[2017-07-29] MEDS ORDERED: NS 1,000 ML IV ONE ×2 (16:18)
[2017-07-29] MEDS ORDERED: PROMETHAZINE HCL 25 MG/ML INJ IVP ONE (16:18)
[2017-07-29 16:26] LABS: PLATELET COUNT 339 10^3/uL (150-400)
[2017-07-29 18:36] VITALS: BP 140/78; PULSE 89; TEMP 98.6; O2SAT 98
== END 2017-07-29 18:36 | disposition home or self-care (01) ==
LOC: EDUNIT#
DX: K52.9 Noninfective gastroenteritis and colitis, unspecified (principal); I25.2 Old myocardial infarction; E86.9 Volume depletion, unspecified; Z79.82 Long term (current) use of aspirin
CPT/HCPCS: 96374; J2550

== ENCOUNTER 2018-09-01 15:18 | Emergency (ER) | payer OTHER ==
--- NOTE | 2018-09-01 16:02 | EDPHY ---
H & P Stated Complaint: R arm injury Source: Patient Exam Limitations: No limitations - Personal History Current Tetanus/Diphtheria Vaccine: Unsure Current Tetanus Diphtheria and Acellular Pertussis (TDAP): Unsure - Medical/Surgical History Hx Asthma: No Hx Chronic Respiratory Disease: No Hx Diabetes: No Hx Cardiac Disease: Yes Hx Renal Disease: No Hx Cirrhosis: No Hx Alcoholism: No Hx HIV/AIDS: No Hx Splenectomy or Spleen Trauma: No Other PMH: [place], hypothyroidism depression anxiety - Social History Smoking Status: Current every day smoker Time Seen by Provider: 09/01/18 16:02 HPI/ROS: HPI: This is a 58-year-old female who presents with Chief Complaint: Right wrist and right hand injury Location: Right wrist, right hand Quality: Injury Duration: Around 9:00 a.m. This morning approximately 7 hr prior to arrival Signs and Symptoms: No bleeding, no radiation, no numbness, no weakness, no tingling, no incontinence, + decreased range of motion, + swelling, + pain, no fever Timing: Acute, worse Severity: Moderate Context: Patient is right-hand dominant, presents with complaints of accidentally slipping on the ice and falling forward landing directly on her right outstretched hand. She complains of pain at the base of her thumb and at the radial aspect of her right wrist. She reports that she has had increased swelling over the last several hours with decreased range of motion secondary to pain. She denies any paresthesias, radiation, weakness. Denies LOC/head injury/neck pain/dizziness/nausea/vomiting/amnesia. Patient reports that she did not hit her head or lose consciousness. She was ambulatory at the scene. She has not applied ice or taking any [id number] medications. Takes aspirin daily Modifying Factors: None Comment: ROS: A comprehensive 10 system review of systems is otherwise negative aside from elements mentioned in the history of present illness. MEDICAL/SURGICAL/SOCIAL HISTORY: Medical history: [place], hypothyroidism depression anxiety Surgical history: Denies Social history: Current every day smoker. CONSTITUTIONAL: Well-developed, well-nourished adult female who appears younger than stated age, awake and alert, no obvious distress HEENT: Atraumatic and normocephalic. NECK: supple, no midline tenderness, flexion 45 degrees, extension 45 degrees, right and left lateral flexion 45 degrees. No meningismus. Cardiovascular: Normal S1/S2, regular rate, regular rhythm, without murmur rub or gallop. PULMONARY/CHEST: Symmetrical and nontender. Clear to auscultation bilaterally. Good air movement. No accessory muscle usage. ABDOMEN: Soft, nondistended, nontender. PELVIC: no pain with rocking; bilateral hips flexion 125 degrees, extension 30 degrees, with no pain internal rotation and no pain external rotation. EXTREMITIES: 2/2 pulses, strength 5/5, right ELBOW: Full extension to 180, flexion to 150, no tenderness over medial epicondyle, no tenderness over lateral epicondyle, no effusion. Right WRIST: Moderate swelling over the radial styloid; Extension decreased to 30, flexion decreased to 40, radial deviation to 10 degree, ulnar deviation to 10, mild scaphoid tenderness, no tenderness over ulnar styloid, moderate tenderness over radial styloid. DIP/PIP/ MCP flexion/extension intact with good light touch sensation. no deformities, no clubbing, no cyanosis or edema. NEUROLOGICAL: no focal neuro deficits. GCS 15. Light touch sensation intact. SKIN: Warm and dry, no erythema. no rash. Good capillary refill. (Leisa,Terra) Constitutional: Initial Vital Signs Temperature (C) 37 C 09/01/18 15:42 Heart Rate 77 09/01/18 15:42 Respiratory Rate 16 09/01/18 15:42 Blood Pressure 112/75 09/01/18 15:42 O2 Sat (%) 94 09/01/18 15:42 O2 Delivery Mode Room Air Allergies/Adverse Reactions: No Known Allergies Allergy (Unverified 09/01/18 15:39) Home Medications: Medication Instructions Recorded Herbals/Supplements -Info Only 1 ea PO DAILY 06/04/17 hydrOXYzine HCL [hydrOXYzine HCL 50 - 100 mg PO HS PRN 06/04/17 (RX)] Aspirin EC [Aspirin EC 81 mg (*)] 81 mg PO DAILY #30 tab 06/05/17 Atorvastatin Calcium 20 mg PO DAILY #30 tablet 06/05/17 Clopidogrel Bisulfate [Plavix (*)] 75 mg PO DAILY #30 tab 06/05/17 buPROPion XL [Wellbutrin 150mg XL] 300 mg PO DAILY #60 tab 06/05/17 Cyclobenzaprine [Flexeril 10 MG 10 mg PO TID PRN #6 tab 07/05/17 (*)] Gabapentin 09/01/18 Levothyroxine 09/01/18 oxyCODONE/APAP 325 [Percocet 1 - 2 tab PO Q4H PRN #10 tab 09/01/18 5325 (*)] Medical Decision Making - Diagnostics Imaging Results: Imaging Impressions Forearm X-Ray 09/01/18 15:44 Impression: Distal radial fracture with a dorsal intra-articular component. 2. Right Forearm, 3 views History: Pain post fall in this no Findings: The distal radial fracture is confirmed. The more proximal radius and ulna are normal. The elbow joint is normally aligned. Impression: Confirmation of the distal radial fracture. Negative more proximally. Wrist X-Ray 09/01/18 15:44 Impression: Distal radial fracture with a dorsal intra-articular component. 2. Right Forearm, 3 views History: Pain post fall in this no Findings: The distal radial fracture is confirmed. The more proximal radius and ulna are normal. The elbow joint is normally aligned. Impression: Confirmation of the distal radial fracture. Negative more proximally. Procedures: Procedure: Splint placement. A right sugar-tong Ortho Glass splint and sling were applied by the Emergency Room painting technician. After application of the splint I returned and re-examined the patient. The splint was adequately immobilizing the joint and distal to the splint the patient's circulation and sensation was intact. (Geraldine De La Fuente) ED Course/Re-evaluation: Vital signs reviewed and stable upon arrival. Fall was mechanical in nature. Ice pack applied and right wrist and forearm x-rays ordered 1652: Right wrist x-ray my read shows distal nondisplaced radial fracture. Placed in sugar-tong Ortho Glass splint and sling with orthopedic follow-up Prescription for Percocet for pain control given. No signs of neurovascular compromise/tenting of skin/compartment syndrome/ extremities and joints examined above and below area of concern and are neurovascularly intact. This patient was seen under the supervision of my secondary supervising physician. I evaluated care for this patient independently. Discussed this patient with Dr. Langley who did not see the patient. (Geraldine De La Fuente) Differential Diagnosis: Differential diagnosis includes but is not limited to scaphoid tenderness, med at carpal tenderness, radial fracture, ulnar fracture, sprain. (Geraldine De La Fuente) Other Provider: PHYSICIAN DOCUMENTATION: The patient was evaluated and managed by the Physician Assistant Produce Manager. My co- signature indicates that I have reviewed this chart and I agree with the findings and plan of care as documented. I am the secondary supervising physician. (Lenin Langley) Departure - Departure Disposition: Home, Routine, Self-Care Clinical Impression: Closed fracture of right distal radius Qualifiers: Encounter type: initial encounter Fracture morphology: unspecified fracture morphology Qualified Code(s): S52.501A - Unspecified fracture of the lower end of right radius, initial encounter for closed fracture Condition: Good Instructions: Wrist Fracture in Adults (ED), How to Use a Sling (ED), Splint Care (ED), ORIF of a Wrist Fracture (DC) Additional Instructions: Keep the splint dry and in place until seen by Orthopedics. Wear the sling while out of bed to aid comfort. Take Tylenol 650 mg every 4 hours and/or Ibuprofen 600 mg every 8 hours with food as needed for pain. Use Percocet every 6 hours as needed for severe/break through pain. Do not use Tylenol and Percocet concomitantly. Apply ice for 30 minutes at a time; 2-3 times per day for the next 1-2 days. Follow up with Orthopedics in 5-7 days at which time they will evaluate and recommend with you if conservative management versus surgery is indicated. Follow-Up: Please follow-up as noted above. Follow-up sooner if your condition worsens or if you develop any new problems. Call as soon as possible for an appointment. Be clear when you call for an appointment that this is an Emergency Department follow-up. Contact the Emergency Department if you have trouble arranging follow-up care. Our referrals are not based on your insurance network. When time allows, contact your insurance carrier to verify the referral physician is in your plan. If not, get a referral for an in-network announcer. Return to the ER immediately if you experience new or worsening pain, discoloration, numbness, tingling, or any other symptoms that concern you. Referrals: Vadim Crouch MD [Medical Doctor] - As per Instructions Prescriptions: oxyCODONE/APAP 5/325 [Percocet 5/325 (*)] 1 - 2 tab PO Q4H PRN #10 tab PRN Reason: Pain, Severe
[2018-09-01 17:37] VITALS: BP 115/80
== END 2018-09-01 17:37 | disposition home or self-care (01) ==
PROC: 2W3CX1Z Immobilization of Right Lower Arm using Splint (ICD-10-PCS; principal; 2018-09-01)
DX: S52.501A Unspecified fracture of the lower end of right radius, initial encounter for closed fracture (principal); W00.0XXA Fall on same level due to ice and snow, initial encounter; Y92.9 Unspecified place or not applicable; Y93.9 Activity, unspecified; Y99.9 Unspecified external cause status
CPT/HCPCS: A4565

== ENCOUNTER 2018-10-28 17:32 | Inpatient (IN) | payer OTHER ==
--- NOTE | 2018-10-28 17:36 | EDPHY ---
H & P Time Seen by Provider: 10/28/18 17:35 HPI/ROS: CHIEF COMPLAINT: Chest pain HISTORY OF PRESENT ILLNESS: 58-year-old woman arrives by EMS with chest pain, started 1 hr prior to arrival while she was at the library. Describes it as center with hard to breathe and some nausea, not helped by nitroglycerin. Symptoms moderate on arrival. She has history of coronary disease with LAD stenting, last admission documented June of 2017. Denies cough or fever or chills or leg swelling or injury. Took an aspirin in the ambulance. Is not currently on Plavix. REVIEW OF SYSTEMS: Eye: no change in vision ENT: no sore throat Cardiac: HPI Pulmonary: HPI Abdomen: no vomiting, diarrhea, abdominal pain Musculoskeletal: No leg swelling Skin: no rash Neuro: no headache Constitutional: no fever : no urinary symptoms A comprehensive 10 point review of systems is otherwise negative aside from elements mentioned in the history of present illness. PAST MEDICAL HISTORY: Includes thyroid, coronary disease, hypercholesterolemia , anxiety on hydroxyzine gabapentin and Wellbutrin Social history: Smoker General Appearance: Alert and conversant, cooperative. Eyes: No scleral icterus. ENT, Mouth: Normal mucous membranes. Respiratory: Normal respiratory effort, breath sounds equal, lungs are clear to auscultation. No wheezing. Cardiovascular: Regular rate and rhythm. Gastrointestinal: Abdomen is soft and non tender. Neurological: Alert, face symmetric, normal motor and sensory in extremities. Skin: Warm and dry, no rashes. Musculoskeletal: No peripheral edema. No calf tenderness. Psychiatric: Not agitated. Emergency Department course/MDM: 4 mg IV morphine, nitroglycerin did not help, labs to include troponin D-dimer and chest x-ray. 1832: Feels better, admission for risk stratification chest pain and history of coronary disease. Smoking Status: Current every day smoker Constitutional: Initial Vital Signs Temperature (C) 37.1 C 10/28/18 17:40 Heart Rate 76 10/28/18 17:40 Respiratory Rate 14 10/28/18 17:40 Blood Pressure 118/84 H 10/28/18 17:40 O2 Sat (%) 98 10/28/18 17:40 O2 Delivery Mode Room Air Allergies/Adverse Reactions: No Known Allergies Allergy (Unverified 09/01/18 15:39) Home Medications: Medication Instructions Recorded Herbals/Supplements -Info Only 1 ea PO DAILY 06/04/17 hydrOXYzine HCL [hydrOXYzine HCL 50 - 100 mg PO HS PRN 06/04/17 (RX)] Aspirin EC [Aspirin EC 81 mg (*)] 81 mg PO DAILY #30 tab 06/05/17 Atorvastatin Calcium 20 mg PO DAILY #30 tablet 06/05/17 Clopidogrel Bisulfate [Plavix (*)] 75 mg PO DAILY #30 tab 06/05/17 buPROPion XL [Wellbutrin 150mg XL] 300 mg PO DAILY #60 tab 06/05/17 Cyclobenzaprine [Flexeril 10 MG 10 mg PO TID PRN #6 tab 07/05/17 (*)] Gabapentin 09/01/18 Levothyroxine 09/01/18 oxyCODONE/APAP 5/325 [Percocet 1 - 2 tab PO Q4H PRN #10 tab 09/01/18 5/325 (*)] Medical Decision Making - Diagnostics EKG Interpretation: 12-lead EKG interpreted by me; official reading is in computer system. My interpretation is sinus rhythm with low precordial voltage, rate 65 with no ischemic changes. Imaging Results: Imaging Impressions Chest X-Ray 10/28/18 17:46 Impression: Suspect airways disease. Otherwise negative. Imaging: I viewed and interpreted images myself Differential Diagnosis: Differential diagnosis considered for chest pain including but not limited to myocardial ischemia, aortic dissection, pericarditis, pulmonary embolus, chest wall pain, pleural inflammation and pulmonary infectious causes. Consult/Admit Bed Type: [place] [id number] - Data Points Laboratory Results: Laboratory Results 10/28/18 17:48 10/28/18 17:48 10/28/18 10/28/18 10/28/18 17:48 17:48 17:48 WBC 7.99 10^3/uL 10^3/uL (3.80-9.50) RBC 4.46 10^6/uL 10^6/uL (4.18-5.33) Hgb 12.8 g/dL g/dL (12.6-16.3) Hct 37.9 % L % (38.0-47.0) MCV 85.0 fL fL (81.5-99.8) MCH 28.7 pg pg (27.9-34.1) MCHC 33.8 g/dL g/dL (32.4-36.7) RDW 13.5 % % (11.5-15.2) Plt Count 321 10^3/uL 10^3/uL (150-400) MPV 9.9 fL fL (8.7-11.7) Neut % (Auto) 54.0 % % (39.3-74.2) Lymph % (Auto) 34.9 % % (15.0-45.0) [place] % (Auto) 8.0 % % (4.5-13.0) Eos % (Auto) 1.9 % % (0.6-7.6) Baso % (Auto) 0.9 % % (0.3-1.7) Nucleat RBC Rel Count 0.0 % % (0.0-0.2) Absolute Neuts (auto) 4.32 10^3/uL 10^3/uL (1.70-6.50) Absolute Lymphs (auto) 2.79 10^3/uL 10^3/uL (1.00-3.00) Absolute Monos (auto) 0.64 10^3/uL 10^3/uL (0.30-0.80) Absolute Eos (auto) 0.15 10^3/uL 10^3/uL (0.03-0.40) Absolute Basos (auto) 0.07 10^3/uL 10^3/uL (0.02-0.10) Absolute Nucleated RBC 0.00 10^3/uL 10^3/uL (0-0.01) Immature Gran % 0.3 % % (0.0-1.1) Immature Gran # 0.02 10^3/uL 10^3/uL (0.00-0.10) D-Dimer < 0.27 ug/mLFEU ug/mLFEU (0.00-0.50) Sodium 137 mEq/L mEq/L (135-145) Potassium 3.8 mEq/L mEq/L (3.5-5.2) Chloride 101 mEq/L mEq/L (97-110) Carbon Dioxide 24 mEq/l mEq/l (22-31) Anion Gap 12 mEq/L mEq/L (6-14) BUN 23 mg/dL mg/dL (7-23) Creatinine 1.0 mg/dL mg/dL (0.6-1.0) Estimated GFR 57 Glucose 104 mg/dL H mg/dL (70-100) Calcium 9.3 mg/dL mg/dL (8.5-10.4) POC Troponin I 10/28/18 17:41 WBC RBC Hgb Hct MCV MCH MCHC RDW Plt Count MPV Neut % (Auto) Lymph % (Auto) [place] % (Auto) Eos % (Auto) Baso % (Auto) Nucleat RBC Rel Count Absolute Neuts (auto) Absolute Lymphs (auto) Absolute Monos (auto) Absolute Eos (auto) Absolute Basos (auto) Absolute Nucleated RBC Immature Gran % Immature Gran # D-Dimer Sodium Potassium Chloride Carbon Dioxide Anion Gap BUN Creatinine Estimated GFR Glucose Calcium POC Troponin I 0.00 ng/mL ng/mL (0.00-0.08) Medications Given: Discontinued Medications Morphine Sulfate (Morphine) 4 mg IVP EDNOW ONE Stop: 10/28/18 17:47 Last Admin: 10/28/18 17:51 Dose: 4 mg Point of Care Test Results: Chemistry 10/28/18 17:41 POC Troponin I 0.00 ng/mL ng/mL (0.00-0.08) Departure - Departure Disposition: [facility] Inpatient Acute Clinical Impression: Chest pain Qualifiers: Chest pain type: unspecified Qualified Code(s): R07.9 - Chest pain, unspecified Condition: Good Referrals: Patient,NotPresent [Primary Care Provider] - As per Instructions
--- NOTE | 2018-10-28 17:49 | CPEKG ---
Test Reason : OPEN Blood Pressure : / mmHG Vent. Rate : 065 BPM Atrial Rate : 065 BPM P-R Int : 147 ms QRS Dur : 094 ms QT Int : 437 ms P-R-T Axes : 077 070 053 degrees QTc Int : 455 ms Sinus rhythm Low voltage, precordial leads Confirmed by Franki Carpenter ([id number]) on 10/28/2018 5:49:19 PM Referred By: Franki Carpenter Confirmed By:Franki Carpenter
[2018-10-28 17:53] LABS: PLATELET COUNT 321 10^3/uL (150-400)
[2018-10-28] MEDS ORDERED: ONDANSETRON 4 MG/2 ML VIAL IVP PRN ×2 (18:53→20:29)
[2018-10-28] MEDS ORDERED: ONDANSETRON DISINTEGRATING 4 MG TAB PO PRN ×2 (18:53→20:29)
[2018-10-28] MEDS ORDERED: hydrOXYzine HCL 25 MG TAB PO PRN (19:24)
--- NOTE | 2018-10-28 19:24 | PDCONSULT ---
Research Environmental Engineer Note: HOSPITALIST HISTORY AND PHYSICAL CC: Chest pain, SOB HPI: 58 y/o female w/hx of CAD s/p x 1 stent to LAD placed in 2016 presents via EMS w/ c/o epigastric, mid-sternal chest pain that feels like squeezing and radiates over left chest wall. Severity is 9/10. Endorses nausea, no emesis. Reports she was at the library doing nothing strenuous when symptoms came on. She took one nitroglycerin tablet which alleviated symptoms however symptoms came back 10-15 minutes later and she took another nitro tab but seemed like it made the symptoms worse. Endorses headache, no vision changes. She received ASA in EMS. Stent was placed at [facility] 2016 and was placed on dual antiplatelet therapy (ASA/Plavix) to which she is no longer on. She presented w/similar symptoms in Jun 2017 w/ EKG exercise stress test demonstrating anterolateral ST depression, CT coronary angiography demonstrating no obstructed flow w/patent LAD stent, very mild InStent irregularities. At that time, acute chest pain most likely 2/2 gastroesophageal reflux disease. Initial testing today are unremarkable, negative troponin and EKG SR, CXR no infiltrates, negative d-dimer. She is being admitted for further work-up and monitoring. Pmx/Psx: CAD s/p x 1 stent to LAD (2016), Anxiety, Depression, Hypothyroidism Family Hx: non-pertinent Social: Homeless, here w/her brother. Sometimes they stay in shelters but most of the time, it is full. They live on the streets and travel back and forth b/ t [place] and [place] either walking or taking the bus. She goes to [facility] in [place] for all healthcare needs. She smokes cigarettes daily, drinks alcohol occasionally and uses cannabis daily. Review of systems: All reviewed and negative except for what is listed in HPI Physical Exam Constitutional: Unkempt appearance, cooperative. Not forthcoming w/ answers. HEENT: PERRLA, EOMI. Hearing normal, moist mucous membrane Cardiovascular: S1, s2 heard. No murmurs, gallops or rubs. Respiratory: CTAB GI: Normoactive BS, no palpable masses, abdominal tenderness : No bladder fullness or tenderness Musculoskeletal: Full ROM, no pain, no joint tenderness or effusions Neuro: A&Ox3, CN2-12 intact, sensation intact bilaterally Psych: Interacting appropriately, answers appropriately, mildly anxious Skin: No noted lesions, abrasions, rashes Lymph: No cervical lymphadenopathy Lab work and imaging were reviewed. Case discussed w/admitting physician, Dr. Martir Conway. A/P: 58 y/o female w/ CAD s/p x 1 stent to LAD in 2017 presenting w/acute unresolved chest pain w/severity of 9/10. Received ASA in EMS, tried Nitro x 2 on her own w/no relief and received 4 mg IVP of Morphine in ED w/ continued c/o chest pain. Clinically, she does not appear to be in 9/10 pain. She is speaking in complete sentences and does not appear to be in any distress besides mildly anxious which I believe is her baseline. She is hemodynamically stable w/ BP 118/84, HR 60, Resp 14, temp 37.1c, 99% RA. #Chest pain: Not a new problem as she presented w/similar symptoms in 2017 and had further work-up at that time which was overall unremarkable. She is not on dual antiplatelet now as it has been more than a year since her stent was placed. She does continue to take ASA 81 mg. Reviewed previous admission notes , she may have the tendency to not adhere to medication regimen d/t financial/ situational difficulties. -Cont tele/PCU monitoring -Cycle trop x 2 -EKG in AM -If above is positive, recommend involving cards for further work-up and another stress test -If above is negative, risk of ACS is low and most likely will be d/c'ed w/ recommendation to f/u outpatient cards/[facility] -Case management to consult for resources; provide more information re: closer clinic in [place] ([facility]) #CAD: on atorvastatin #GERD: I suspect acid reflex being a component to her chest pain and prescribed Protonix to see if it helps to alleviate her symptoms. #Anxiety/Depression: cont gabapentin and wellbutrin Diet: Regular Code: Full VTE ppx: SCDs Dispo: Admit to obs
[2018-10-28] MEDS ORDERED: PANTOPRAZOLE SODIUM 40 MG TAB PO ONE (19:26)
[2018-10-28] MEDS: PANTOPRAZOLE SODIUM 40 MG TAB PO SCH (19:27)
[2018-10-28] MEDS: GABAPENTIN 300 MG CAP PO SCH (19:32)
[2018-10-28] MEDS ORDERED: GABAPENTIN 300 MG CAP ONE (19:32)
[2018-10-28] MEDS ORDERED: ACETAMINOPHEN 325 MG TAB ONE (19:37)
[2018-10-28] MEDS: ACETAMINOPHEN 325 MG TAB PO PRN (19:38)
--- NOTE | 2018-10-28 19:51 | PDCONSULT ---
Local Company Tanker Driver Note: I have personally seen and evaluated Ms. Juarez. I agree with the assessment and plan as outlined in separate note by FINANCIAL CONSULTANT, Jessica Connor.
[2018-10-28] MEDS ORDERED: hydrOXYzine HCL 50 MG TAB PO PRN (20:29)
[2018-10-29] MEDS: ACETAMINOPHEN 325 MG TAB PO PRN ×3 (00:29→15:39)
[2018-10-29] MEDS ORDERED: LEVOTHYROXINE 50 MCG TAB PO SCH (06:00)
[2018-10-29] MEDS: LEVOTHYROXINE 50 MCG TAB PO SCH (06:41)
[2018-10-29] MEDS ORDERED: ASPIRIN EC 81 MG TAB PO SCH (09:00)
[2018-10-29] MEDS ORDERED: NON-FORMULARY NEW DRUG (Atorvastatin Calcium [Atorvastatin Calcium] 80 MG) PO SCH (09:00)
[2018-10-29] MEDS ORDERED: buPROPion XL 150 MG TAB PO SCH (09:00)
--- NOTE | 2018-10-29 11:09 | ASMTCMCOM ---
CM Note CM Note Notes: Met with Pt and her brother Tr but goes by" Ray" and Chart reviewed for d/c Planning. Giovanny (goes by Francesca) is a 58 yr old admitted with chest pain, difficulty breathing, and nausea, Pt has a history of CAD w LAD stenting Jun 2017, and on Anxiety on Wellbutrin. Currently on Oxygen and reports feeling a little better. Her Brother is by her side, both are homeless, and some times, they live at the [facility]. Francesca gets her medication at the [facility] in [place] and usually takes a bus to get them. Pt request to get a "TB card", she is requesting for an Xray to rule out TB. Pt reports when she has a skin test her skin turns red. RN caring for Pt informed of Pt's request. Pt will need a bed at the retirement when medically cleared for discharge. CM available for needs. PLAN: Likely to [facility]. Date Signed: 10/29/2018 11:08 AM Electronically Signed By:Shanelle Matson
[2018-10-29] MEDS: ATORVASTATIN CALCIUM 40 MG TAB PO SCH (11:36)
[2018-10-29] MEDS: buPROPion XL 150 MG TAB PO SCH (11:36)
[2018-10-29] MEDS: PANTOPRAZOLE SODIUM 40 MG TAB PO SCH ×2 (11:36→21:10)
[2018-10-29] MEDS: GABAPENTIN 300 MG CAP PO SCH ×3 (11:36→21:10)
[2018-10-29] MEDS: ASPIRIN EC 81 MG TAB PO SCH (11:36)
--- NOTE | 2018-10-29 16:17 | HOSPPROG ---
Hospitalist Progress Note Assessment/Plan: DIAGNOSES: * Chest pain at rest * Known history of LAD stent 2016 * Ongoing tobacco use * History of GERD Cause of her symptoms is unclear at this time. She has ruled out for myocardial infarction with no arrhythmia or heart failure I reviewed her case with Calderon Thompson of Cardiology PLANS: * Treadmill stress test with myocardial perfusion imaging (this will not be able to happen until tomorrow due to inability to get nuclear medium before then ) and given her homelessness and compliance issues and ongoing smoking we are recommending that she stay here until she has this test * Increase Protonix to twice daily * Continue on wood fuel pelletizer * Due to need to stay here for ongoing monitoring and diagnostic testing will change to inpatient status SUBJECTIVE: Still having intermittent chest discomfort substernal described as squeezing, with a sense of dyspnea OBJECTIVE Vitals reviewed: All stable without fever 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
[2018-10-30] MEDS: LEVOTHYROXINE 50 MCG TAB PO SCH (04:41)
--- NOTE | 2018-10-30 08:27 | PDMN ---
Medical Necessity Medical necessity: MCG: M40 angina- CP at rest with known cardiac HX further monitoring, eval and tx needed > 2 MN pt still with intermittent chest discomfort, squeezing and dyspnea status changed to INPT 10/29/18
[2018-10-30] MEDS ORDERED: REGADENOSON 0.4 MG/5 ML SYR IVP ONE (09:31)
--- NOTE | 2018-10-30 11:12 | CPR ---
[f rep st] NONINVASIVE CARDIAC PROCEDURE REPORT REPORT TITLE: EXERCISE TREADMILL OF EXERCISE TREADMILL MPI STUDY SUPERVISING TESTER WAFER SUBSTRATE: Dr. Natanael Soria INDICATION FOR PROCEDURE: Known history of CAD, episodes of chest pressure. PRE: After obtaining informed consent, initially, the patient was placed on electrocardiogram. Init ial EKG shows sinus rhythm, normal axis, noted Q-waves in V1 and V2, possible old anterior or septal infarction. Nonspecific T-wave abnormalities in inferolateral leads. initial blood pressure 124/80, saturation 98%. Patient denies any chest pain, pressure, or symptoms suggesting of ischemia. STRESS: The patient was placed on exercise treadmill, following standard Derek protocol with the [facility] findings: 1. Patient exercised for 8 minutes and 30 seconds, 9.6 METS. 2. Obtained a heart rate of 145 beats per minute, which was 89% of MPHR. 3. Patient had no chest pain or symptoms of ischemia during exercise. 4. Patient was noted to have [address] depression in inferolateral leads equivocal for is chemia. 5. No arrhythmias were noted. 6. SpO2 greater than 90% throughout testing. 7. BP response: Resting 124/80, peak 158/70. 8. Test was discontinued due to maximum effort. 9. Juarez treadmill score of 3 placing her at intermediate risk. RECOVERY: Patient recovered for 5 minutes, EKG returned back to baseline. She remained asymptomatic with no symptoms suggesting of ischemia. IMPRESSION: A 58-year-old female with known history of coronary artery disease with previous stents undergoing exercise treadmill for exercise treadmill MPI study for evaluation of ischemia, exercised for 8 minutes and 30 seconds without symptoms. No arrhythmias noted. She did have [address] depression in inferolateral leads, which is equivocal for ischemia. Juarez treadmill score of 3 placi ng her at intermediate risk. She will be sent down to Nuclear Medicine for post-stress imaging. /[id number]/MODL
[2018-10-30] MEDS: ATORVASTATIN CALCIUM 40 MG TAB PO SCH (11:16)
[2018-10-30] MEDS: GABAPENTIN 300 MG CAP PO SCH ×2 (11:16→20:15)
[2018-10-30] MEDS: buPROPion XL 150 MG TAB PO SCH (11:17)
[2018-10-30] MEDS: PANTOPRAZOLE SODIUM 40 MG TAB PO SCH ×2 (11:18→20:15)
[2018-10-30] MEDS: ASPIRIN EC 81 MG TAB PO SCH (11:18)
--- NOTE | 2018-10-30 16:27 | ASMTCMCOM ---
CM Note CM Note Notes: [employer] screened pt today for Medicaid and was able to apply for emergency medicaid, however pt is not a citizen and doesn't qualify for regular medicaid. CM contaced [facility] who faxed pt her TB card stating that her chest xray was clear so pt can sleep at the [facility] [place] where she is assigned. If pt discharges tonight, pt will need bus pass for transport and follow up appointment with [facility]. CM to follow. D/C Plan: [facility] with bus pass. Date Signed: 10/30/2018 04:27 PM Electronically Signed By:Preethi Garcia
--- NOTE | 2018-10-30 22:45 | HOSPPROG ---
Hospitalist Progress Note Assessment/Plan: DIAGNOSES: * Chest pain at rest * Known history of LAD stent 2017 * Ongoing tobacco use * History of GERD I reviewed the stress/perfusion results in detail with the patient at her bedside today. I reviewed that while they are subtle, there are abnormalities that could potentially be consistant with ischemia anteriorly (she has a prior prox LAD stent). Today her symptoms are better. That could be due to her resting here, or could perhaps be due to use of protonix here. I offered her the options of angiography to further assess her coronary status, vs watchful waiting with ongoing ASA and statin, along with protonix, and recommendations for stopping tobacco, as well as an antireflux diet. I reviewed clinical advantages and disadvantages of both approaches, with risk assessment. At this time she is uncertain but leaning toward medical management with no angiography. At this time I will watch her here again overnight, as it will be 20 degrees and snowing tonight and she is homeless without a phone. She would not be able to get into a fci tonight at the time of my visit with her. I also spent considerable time on smoking cessation recommendations today SUBJECTIVE: had one episode of chest pain today but overall doing better she did not have pain during exercise treadmill OBJECTIVE Vitals reviewed: All stable without fever Human Resources Records Clerk, my review: All sinus Exam: alert oriented mildly anxious skin warm dry color ok resps not labored lungs clear BSs heart regular abd soft nondistended nontender, bowel sounds present limbs warm, no edema iv site ok STRESS TEST/IMAGING: I reviewed the results of her exercise treadmill test and myocardial perf images with Calderon Thompson and Dr Soria of cardiology. She had normal exertional capacity and recovery with good pulse and BP responses, no pain. She did have some upsloping ST depression during exercise, and her overall score was 3, indeterminate. On myocard perfusion images, radiologist reading was old ant AR, with no ischemia. However Dr Soria and I both felt on our review of the images that there is some anterior perfusion abnormality that is mildly worse with stress than rest, indicating possible ischemia. 40 minutes in bedside discussion as above along with clinical exam, in addition to time spent reviewing studies with cardiology Objective: Vital Signs Temp Pulse Resp BP Pulse Ox 36.8 C 67 15 105/63 96 10/30/18 19:18 10/30/18 19:18 10/30/18 19:18 10/30/18 19:18 10/30/18 19:18 10/29/18 10/30/18 10/31/18 06:59 06:59 06:59 Intake Total 1410 1640 Balance 1410 1640 ICD10 Worksheet Patient Problems: Problems Problem Status Onset Chest pain Acute
[2018-10-31] MEDS: LEVOTHYROXINE 50 MCG TAB PO SCH (06:26)
[2018-10-31 08:25] VITALS: BP 107/64
--- NOTE | 2018-10-31 08:48 | PDDCSUM ---
Discharge Summary Discharge Summary: DISCHARGE DIAGNOSES: * chest pain, suspect GERD * ruled out AR * equivacol myocardial perfusion abnormality after stress * known CAD with LAD stent * ongoing tobacco abuse COMPLICATIONS: none PROCEDURES: graded exercise treadmill with myocardial perfusion imaging: no symptoms or vital sign abnormality, normal exercise capacity, upsloping ST depression w exercise, Juarez score 3; myocardial perfusion with some equivacol changes to suggest possible ischemia HOSPITAL COURSE: The patient came in with substernal chest pain. She ruled out for AR, had no chf or arrhythmia, no vital sign abnormalities. There was nothing to suggest PE or pneumonia. No evidence of aneurysm. She continues to smoke. There were features to her story to suggest possible GERD. She was started on protonix and observed. Her symptoms have resolved at present. The cause of her symptoms is uncertain. She did have CT coronary angio chest just over a year ago here ( some months after her stent) with no signs of poarch vessel or in stent stenosis. She was given the option to have angiography now, or to treat for reflux and attempt to quit smoking, follow up with her usual crop production advisor. She chose to not have angiography now. She is given instructions for antireflux diet, smoking cessation, and prescription for protonix. MEDICATION CHANGES: protonix 40 mg daily added INSTRUCTIONS: antireflux diet smoking cessation measures FOLLOW UP: with her primary crop production advisor
[2018-10-31] MEDS: PANTOPRAZOLE SODIUM 40 MG TAB PO SCH (09:03)
[2018-10-31] MEDS: GABAPENTIN 300 MG CAP PO SCH (09:03)
[2018-10-31] MEDS: ASPIRIN EC 81 MG TAB PO SCH (09:03)
[2018-10-31] MEDS: ATORVASTATIN CALCIUM 40 MG TAB PO SCH (09:03)
[2018-10-31] MEDS: buPROPion XL 150 MG TAB PO SCH (09:04)
--- NOTE | 2018-10-31 09:36 | ASMTLACE ---
RUDYE Length of stay for Answers: 1 day current admission Comorbidities - select Answers: Coronary Artery Disease all that apply Previous myocardial infarction Other Notes: Hypothyroidism # of Emergency department Answers: 1-2 visits in the last 6 months Social determinants Answers: Mental health diagnosis (anxiety, depression, pers onality disorders, etc.) Score: 9 Date Signed: 10/31/2018 09:35 AM Electronically Signed By:Rocio Wang RN
--- NOTE | 2018-10-31 09:38 | ASMTDCNOTE ---
Case Management Discharge Discharge Order Complete? Answers: Yes Patient to Obtain Answers: Independently Medications Transportation Arranged Answers: Bus Tokens Family Notified Answers: No Discharge Comments Notes: Medically cleared for discharge. Will need to f/u with [facility]. Ok per xray to bill at [facility]. Bus pass provided. Date Signed: 10/31/2018 09:37 AM Electronically Signed By:Rocio Wang RN
== END 2018-10-31 10:05 | disposition home or self-care (01) | DRG 392 ==
LOC: EDUNIT# → EDBD → F2W 20:15 → OBSVTOIN 10-29 17:20
PROVIDERS: ADMIT Internal Medicine; ATTEND Internal Medicine
DX: K21.9 Gastro-esophageal reflux disease without esophagitis (principal); R94.39 Abnormal result of other cardiovascular function study; I25.10 Atherosclerotic heart disease of native coronary artery without angina pectoris; Z95.5 Presence of coronary angioplasty implant and graft; E78.00 Pure hypercholesterolemia, unspecified; F41.9 Anxiety disorder, unspecified; F32.9 Major depressive disorder, single episode, unspecified; F17.210 Nicotine dependence, cigarettes, uncomplicated; E03.9 Hypothyroidism, unspecified; Z59.0 Homelessness
CPT/HCPCS: 84484-ER; 96374; A9500; G0378; J2785